=== PATIENT | male | born 1950 | race Caucasian/White ===

== ENCOUNTER 2017-03-30 07:49 | Day surgery (SDC) | payer MEDICARE, BC, SELFPAY ==
[2017-03-30] VITALS (7 sets, daily range): BP systolic 131–156; BP diastolic 71–81; PULSE 70–74; RESP 18–20; TEMP 36.4; O2SAT 20–98; BMI 32.1
--- NOTE | 2017-03-30 08:02 | CA_ITS ---
CA echo doppler complete PROCEDURE: 2-D M-mode and color Doppler study INDICATIONS FOR THE TEST: Chest pain COPD Heart Murmur Tobacco Smoking Palpitations Fatigue Syncope Edema HypertensionXDiabetes Mellitus Rheumatic Fever SOB NAVA Obesity HyperlipidemiaX Family History HD Additional History BRADYCARDIA, 3RD DEGREE BLOCK,PACER INSERTION TODAY PATIENT INFORMATION HEIGHT: 72 WEIGHT:240 GENDER: Male B/P:128/70 2-D/M-MODE INTERPRETATION: 2-D MEASUREMENTS OBSERVED VALUES IN CMS Right Ventricular Dimension (RVDd) 3.0 Interventricular Septum (Thickness)(IVsd) 1.1 Left Ventricular Internal Dimensions(LVIDd) 4.8 Left Ventricular Posterior Wall (Thickness)(LVPWd) .9 Aortic Root 3.5 Aortic Cusp Separation 1.8 Left Atrial Dimensions (LAD) 4.0 2D 1. Left atrium is mildly enlarged, left ventricle is normal size, there is mild concentric left ventricular hypertrophy, visually estimated ejection fraction 50% with no obvious regional wall motion abnormality. 2. The right atrium and right ventricle are mildly enlarged with normal contractility. 3. The aortic valve is minimally thickened and fibrosed. 4. The mitral and tricuspid valvular minimally thickened. 5. The pulmonic valve is poorly visualized. 6. Trivial pericardial effusion noted. DOPPLER INTERROGATION: Doppler interrogation of the aortic, mitral and tricuspid valvular presence of mild mitral and tricuspid regurgitation, tricuspid regurgitant jet velocity is insufficient for calculation of the right ventricular systolic pressure, diastolic parameters are inconclusive. CONCLUSION: 1. Mild biatrial enlargement, normal left ventricular size, mild concentric left ventricular hypertrophy, visually estimated ejection fraction 50% with no obvious regional wall motion abnormality, diastolic parameters are inconclusive. 2. Mildly enlarged right ventricle with normal contractility. 3. Mild mitral and tricuspid regurgitation. 4. Trivial pericardial effusion noted.
--- NOTE | 2017-03-30 09:19 | HMH.ANESCL ---
[facility] Anesthesia Checklist - Structural Data Planned Operative Procedure/s: Permanent Pacemaker Placement Consent for Planned Operative Procedure(s) Verified: Yes Verified Documents: Surgical Consent - Additional verifications Anesthesia Reactions: No - Airway Assessment C-Spine Mobility Assessed: Yes TMJ Mobility Assessed: Yes Dentition: Dentures-good fit - Anesthesia Plan Anesthesia Risk discussed: Yes Anesthesia Plan: Verified ASA Class: III Anesthesia Type: MAC [facility] Anesthesia HX I have reviewed the patient's past medical history: Yes Medical History: Reports:: Gastroesophageal Reflux Disease, Hyperlipidemia, Hypertension, Kidney Stones Denies:: Diabetes Mellitus Type 1, Diabetes Mellitus Type 2, Seizures Other Medical History: Denies: Blood Transfusion Reaction Comment: 3rd degree AV block Other Surgeries: Yes: Colonoscopy, Hernia Repair, Other (stomach surgery). No: Pacemaker Amputation: No Fractures: No *Family Hx:: No significant family history
--- NOTE | 2017-03-30 11:59 | XR_ITS ---
XR chest portable Ordering Physician: Dominik Neville MD Patient Age: 66 years: Male HISTORY: ITS.REASON: pacemeker placement verification TECHNIQUE: AP portable upright chest pacemaker placement COMPARISON : March 27, 2009 2 view chest FINDINGS Pacemaker overlies the upper left chest with atrial and ventricular leads appearing intact. Heart appears upper normal size. The lungs are clear. No pneumothorax. No pleural effusion. No acute findings. Markings upper normal towards the right lung base similar to previous study. The Previous generous hiatal hernia shadow is less evident on today's study. IMPRESSION: ------ . Pacemaker now in place overlying the left chest No pneumothorax. Lungs clear no active disease. Upper normal size.
--- NOTE | 2017-05-27 11:16 | HMH.PACER ---
[facility] Pacemaker - Pacemaker Placement Date of Procedure:: 03/30/17 Time of Procedure:: 09:00 Procedure Performed:: Pocket formation for permanent pacemaker placement Placement of atrial sensing lead into the right atrial appendage Placement of ventricular sensing pacing lead into the right ventricular apex Placement of permanent pacemaker Preoperative Diagnosis:: Symptomatic bradycardia Intermittent atrioventricular block Complications:: None Estimated Blood Loss: 10 Technique:: 1% Lidocaine with epinephrine used to anesthetize the left anterior aspect of the chest.Scalpel was used to make the initial cutaneous incision while electrocautery was used to dissect down into the fascia. The fascia was lifted off the pectoralis muscle and digitally manipulated creating a pocket for the pacemaker. The patient was then placed in Trendelenburg position and the subclavian vein was accessed via the Selinger technique. A 7 Cymraes sheath was placed under fluoroscopic guidance into the subclavian vein. Following this, an additional wire was placed into the sheath. Now, with two wires inside the 7 Cymraes sheath, this sheath was removed, maintaining the two wires in the subclavian vein. The sheath and dilator was then placed over one of the wires while keeping the other wire in place within the subclavian vein. The dilator was removed from the sheath. Using fluoroscopic guidance, the ventricular lead was placed into the right ventricular apex, screwed and secured into place. Electronic interrogation proved acceptable thresholds and voltage within the lead. Using 3-0 silk, the ventricular lead was then secured into place. Lead was secured to the fascia using the 3-0 silk. Following this, the sheath was pealed away. An additional 7 Cymraes fresh sheath and dilator was placed over the existing wire. Using fluoroscopic guidance, the atrial lead was then placed into the right atrial appendage and screwed and secured in place. Electrical interrogation demonstrated acceptable thresholds and voltage numbers. The atrial lead was then secured into place using 3-0 silk and then the lead was finally secured to the fascia. With both the atria and ventricular leads in place with acceptable thresholds and sensitivity, the atrial and ventricular leads were placed into the pacemaker generator. Pacemaker generator was then secured to the fascia using 3-0 silk. 1 gram of Ancef was used to flush the pocket. Following the pacemaker being secured to the fascia and in place, Monocryl was used to close the subcutaneous layers while tova were used to close the cutaneous layer. A pressure dressing was placed and the patient was transferred to the postop holding area in stable condition for postoperative care. - Interrogation Narrative: P-wave measures 4.5 mV with a threshold of 1 V and lead impedance 557 ohms and pulse width 0.4 R wave measures greater than 12 mV with an impedance of 835 ohms and a threshold of 0.2 V pulse width 0.4 ms DDDR mode with base tracking of 70 maximum track of 120 Generator model number [id number] serial #[id number] Atrial lead model number [id number] mm52 serial number [id number] Ventricular lead model number LPA 1200 mm58 serial number [id number] Impression:: Successful pocket formation for permanent pacemaker placement Successful placement of atrial and sensing pacing lead into the right atrial appendage Successful placement of ventricular and sensing pacer lead into the right ventricular apex Successful per pacemaker placement Plan: Postoperative wound care
--- NOTE | 2017-05-27 11:19 | P.PCN_ITS ---
[facility] Pacemaker - Pacemaker Placement Date of Procedure:: 03/30/17 Time of Procedure:: 09:00 Procedure Performed:: Pocket formation for permanent pacemaker placement Placement of atrial sensing lead into the right atrial appendage Placement of ventricular sensing pacing lead into the right ventricular apex Placement of permanent pacemaker Preoperative Diagnosis:: Symptomatic bradycardia Intermittent atrioventricular block Complications:: None Estimated Blood Loss: 10 Technique:: 1% Lidocaine with epinephrine used to anesthetize the left anterior aspect of the chest.Scalpel was used to make the initial cutaneous incision while electrocautery was used to dissect down into the fascia. The fascia was lifted off the pectoralis muscle and digitally manipulated creating a pocket for the pacemaker. The patient was then placed in Trendelenburg position and the subclavian vein was accessed via the Selinger technique. A 7 Montserratian sheath was placed under fluoroscopic guidance into the subclavian vein. Following this, an additional wire was placed into the sheath. Now, with two wires inside the 7 Montserratian sheath, this sheath was removed, maintaining the two wires in the subclavian vein. The sheath and dilator was then placed over one of the wires while keeping the other wire in place within the subclavian vein. The dilator was removed from the sheath. Using fluoroscopic guidance, the ventricular lead was placed into the right ventricular apex, screwed and secured into place. Electronic interrogation proved acceptable thresholds and voltage within the lead. Using 3-0 silk, the ventricular lead was then secured into place. Lead was secured to the fascia using the 3-0 silk. Following this, the sheath was pealed away. An additional 7 Montserratian fresh sheath and dilator was placed over the existing wire. Using fluoroscopic guidance, the atrial lead was then placed into the right atrial appendage and screwed and secured in place. Electrical interrogation demonstrated acceptable thresholds and voltage numbers. The atrial lead was then secured into place using 3-0 silk and then the lead was finally secured to the fascia. With both the atria and ventricular leads in place with acceptable thresholds and sensitivity, the atrial and ventricular leads were placed into the pacemaker generator. Pacemaker generator was then secured to the fascia using 3-0 silk. 1 gram of Ancef was used to flush the pocket. Following the pacemaker being secured to the fascia and in place, Monocryl was used to close the subcutaneous layers while tova were used to close the cutaneous layer. A pressure dressing was placed and the patient was transferred to the postop holding area in stable condition for postoperative care. - Interrogation Narrative: P-wave measures 4.5 mV with a threshold of 1 V and lead impedance 557 ohms and pulse width 0.4 R wave measures greater than 12 mV with an impedance of 835 ohms and a threshold of 0.2 V pulse width 0.4 ms DDDR mode with base tracking of 70 maximum track of 120 Generator model number [id number] serial #[id number] Atrial lead model number LPA 1200 mm52 serial number [id number] Ventricular lead model number LPA 1200 mm58 serial number [id number] Impression:: Successful pocket formation for permanent pacemaker placement Successful placement of atrial and sensing pacing lead into the right atrial appendage Successful placement of ventricular and sensing pacer lead into the right ventricular apex Successful per pacemaker placement Plan: Postoperative wound care
== END 2017-03-30 12:45 | disposition home or self-care (01) ==
PROVIDERS: Family Provider Family Medicine; PCP Family Medicine; Visit Provider Internal Medicine
DX: I44.2 Atrioventricular block, complete (principal); R00.1 Bradycardia, unspecified; I10 Essential (primary) hypertension
CPT/HCPCS: 33208; 71045; 93306; 96374; C1785; C1898

== ENCOUNTER → 2017-04-23 08:43 | Outpatient (CLI) | payer MEDICARE, SELFPAY ==
--- NOTE | 2017-04-23 08:47 | FL_ITS ---
FL upper GI w air HISTORY: ITS.REASON: ABD PAIN ORDERING PHYSICIAN: Jan Zhang MD PATIENT AGE: 66 years COMPARISON: 09/15/2014 FINDINGS: The esophagus has an unremarkable appearance. Previously there was a large hiatal hernia on 09/15/2014. No hernia is evident at this time. There is narrowing of the distal esophagus suggesting that the patient has had a Rehana fundoplication. Please correlate with surgical history. No annular constricting lesions are evident. Contrast does flow into the stomach. No ulcer or mass evident. Duodenal bulb and proximal duodenum is unremarkable. The patient was scheduled for a small bowel follow-through however, patient refused to drink additional quantity of barium and also refused additional images for the small bowel follow-through which was therefore canceled. FLUOROSCOPY TIME : 2 minutes and 33 seconds. IMPRESSION: 1. No evidence of hiatal hernia. There is narrowing of the distal esophagus with filling defect in the cardia of the stomach consistent with Rehana fundoplication surgery. 2. Otherwise negative upper GI
== END ==
PROVIDERS: Family Provider Family Medicine; PCP Family Medicine; Visit Provider Family Medicine
DX: R10.9 Unspecified abdominal pain (principal)
CPT/HCPCS: 74247

== ENCOUNTER → 2017-05-08 10:49 | Outpatient (CLI) | payer MEDICARE, BC, SELFPAY ==
--- NOTE | 2017-05-08 10:58 | CT_ITS ---
CT head/brain wo con HISTORY: Bilateral facial and arm numbness ORDERING PHYSICIAN: Johnson Alvarez MD PATIENT AGE: 66 years COMPARISON: None TECHNIQUE: Axial images obtained without contrast. Brain and bone windows reviewed. FINDINGS: No midline shift, mass effect, intracranial hemorrhage, hydrocephalus, or extra-axial fluid collection is evident. The calvarium has an unremarkable appearance. No mastoid effusion. No sinus air-fluid levels.. IMPRESSION: Negative CT head without contrast. No acute finding. There is no evidence of intracranial hemorrhage, focal mass, or acute territorial infarction. A negative CT does not exclude an acute CVA. A follow-up head CT or MRI is recommended if neurological symptoms persist
[2017-05-08 12:03] LABS: Anion Gap 11.3 mEq/L (5-15); Blood Urea Nitrogen 18 mg/dL (7-18); Carbon Dioxide 29 mmol/L (21.0-32.0); Chloride 104 mmol/L (98-107); Creatinine,Serum 1.01 mg/dL (0.70-1.30); Estimated Glomerular Filt Rate 74 ml/min (>60); GFR (African American) 90 ML/MIN (>60); Glucose 101 mg/dL (74-106); Sodium 140 mmol/L (136-145)
[2017-05-08 12:17] LABS: Potassium 4.3 mmoL/L (3.5-5.1)
== END ==
PROVIDERS: Family Provider Family Medicine; PCP Family Medicine; Visit Provider Internal Medicine Cardiovascular Disease
DX: I10 Essential (primary) hypertension (principal); E78.5 Hyperlipidemia, unspecified; R20.2 Paresthesia of skin; I20.9 Angina pectoris, unspecified; Z95.0 Presence of cardiac pacemaker
CPT/HCPCS: 36415; 70450; 80048

== ENCOUNTER → 2017-05-11 11:20 | Outpatient (CLI) | payer MEDICARE, SELFPAY ==
--- NOTE | 2017-05-11 11:22 | CI_ITS ---
Cerebrovascular Exam Indications: 780.4 Dizziness and giddiness. 782.0 Disturbance of skin sensation. IMPRESSIONS 1. The bilateral internal carotid arteries reveal no evidence of plaque or stenosis. 2. The bilateral common and external carotid arteries reveal no significant stenosis. 3. The bilateral vertebral arteries are patent with normal antegrade flow. Carotid duplex study. Complete study and Doppler flow study including spectral analysis, color and hopkins scale imaging. Height: Height: 182.9cm. Height: 72in. Weight: Weight: 107kg. Weight: 235.5lb. Body mass index: BMI: 32kg/m^2. Body surface area: BSA: 2.36m^2. Location: Vascular laboratory. Patient status: Outpatient. Tables: Arterial flow: + +--------+--------+ Location V sys V ed + +--------+--------+ Right CCA - proximal 64.4cm/s 14.9cm/s + +--------+--------+ Right CCA - distal 70.7cm/s 14.9cm/s + +--------+--------+ Right ECA 79.4cm/s -------- + +--------+--------+ Right ICA - proximal 66.8cm/s 15.7cm/s + +--------+--------+ Right ICA - mid 55.8cm/s 16.5cm/s + +--------+--------+ Right ICA - distal 49.5cm/s 18.1cm/s + +--------+--------+ Right vertebral 47.1cm/s -------- + +--------+--------+ Left CCA - proximal 85.6cm/s 18.9cm/s + +--------+--------+ Left CCA - distal 84.1cm/s 19.6cm/s + +--------+--------+ Left ECA 52.6cm/s -------- + +--------+--------+ Left ICA - proximal 51.1cm/s 16.5cm/s + +--------+--------+ Left ICA - mid 62.9cm/s 21.2cm/s + +--------+--------+ Left ICA - distal 55cm/s 14.1cm/s + +--------+--------+ Left vertebral 44.8cm/s -------- + +--------+--------+ Velocity ratios: + + + + + + Right, V sys Right, V ed Left, V sys Left, V ed + + + + + + Max ICA/dist CCA 0.94 1.21 0.75 1.08 + + + + + + (Report amended ) Electronically signed by: Lei Olivares [id number]
--- NOTE | 2017-05-11 11:22 | NM_ITS ---
NM stephani perf SPECT rest str CLINICAL INDICATION: Chest pain, fatigue ORDERING PHYSICIAN: Johnson Alvarez MD PATIENT AGE: 66 years COMPARISON: None DOSE: 10.52 mCi Tc Myoview intravenously at rest followed by 31.3 mCi technetium Myoview following the intravenous ministration of 0.4 mg of Lexiscan. Resting blood pressure is 155/81. Stress blood pressure 164/76. FINDINGS: Ejection fraction is calculated to be 62%. No obvious wall motion abnormality. SPECT and polar map images reviewed. No reversible defects are apparent. There slight decrease activity within the inferior wall and septum and may be technical in nature becoming more. On the delayed images. IMPRESSION: 1. Normal ejection fraction. 2. No convincing evidence of ischemia or infarction
--- NOTE | 2017-05-11 12:51 | HMH.ITSHM ---
ATORVASTATIN B-12 CALCIUM CENTRUM SILVER LEVOTHYROXINE ELIQUIS
== END ==
PROVIDERS: Family Provider Family Medicine; PCP Family Medicine; Visit Provider Internal Medicine Cardiovascular Disease
DX: R20.1 Hypoesthesia of skin (principal); E87.6 Hypokalemia; F41.9 Anxiety disorder, unspecified; R42 Dizziness and giddiness; R20.0 Anesthesia of skin; I44.2 Atrioventricular block, complete; I10 Essential (primary) hypertension; I44.1 Atrioventricular block, second degree; E78.5 Hyperlipidemia, unspecified; R00.1 Bradycardia, unspecified; I20.8 Other forms of angina pectoris
CPT/HCPCS: 78452; 93017; 93880; A9502; J2785

== ENCOUNTER → 2018-12-17 11:52 | Outpatient (CLI) | payer MEDICARE, SELFPAY ==
[2018-12-17 13:15] LABS: Anion Gap 13.8 mEq/L (5-15); Blood Urea Nitrogen 30 mg/dL (7-18); Calcium 9.2 mg/dL (8.5-10.1); Carbon Dioxide 27 mmol/L (21.0-32.0); Chloride 103 mmol/L (98-107); Creatinine,Serum 1.65 mg/dL (0.70-1.30); Estimated Glomerular Filt Rate 42 ml/min (>60); GFR (African American) 51 ML/MIN (>60); Glucose 103 mg/dL (74-106); Potassium 3.8 mmoL/L (3.5-5.1); Sodium 140 mmol/L (136-145)
== END ==
PROVIDERS: Visit Provider Internal Medicine Cardiovascular Disease
DX: I10 Essential (primary) hypertension (principal); I48.91 Unspecified atrial fibrillation; R00.2 Palpitations; Z95.0 Presence of cardiac pacemaker
CPT/HCPCS: 36415; 80048

== ENCOUNTER → 2018-12-21 12:43 | Outpatient (CLI) | payer MEDICARE, SELFPAY ==
--- NOTE | 2018-12-21 12:45 | CA_ITS ---
APPROVED REPORT EXAM: Comprehensive 2D, Doppler, and color-flow Echocardiogram Service Department Manager: Patricia Ramos RDCS Ht: 6 ft 0 in Wt: 260lbs BSA: 2.38 BP: 168/81 mmHg Indications: Shortness of Breath, Atrial Fibrillation, Palpitations, Hyperlipidemia, Hypertension/HDD, PACEMAKER 2D Dimensions LVOT 1.80 cm (M/F) 1.5-2.5 M-Mode Dimensions RVDd 2.80 cm (0.9-2.6) LA Diam 5.10 cm (1.9-4.0) LVDd 5.10 cm (3.5-5.7) Ao Diam 3.40 cm (2.0-3.7) LVDs 3.90 cm (3.5-5.7) AV Cusp 2.00 cm (1.5-2.6) IVSd 0.90 cm (0.6-1.1) PWd 1.00 cm (0.6-1.1) EF (Teich) 46.90% FS 23.50% EDV (Teich) 124.00 mL ESV (Teich) 65.90 mL LV Diastology E/A Ratio 0.6 MED E' 5.46 (< 7 cm/sec) E'/MED E' Ratio 7.80 (>14) LAT E' 7.80 (<10 cm/sec) E/LAT E' Ratio 5.40 (>14) Mitral Valve MV E Max Norm. 42.40 (40-130 cm/s) MV A Velocity 74.00 (40-130 cm/s) E/A Ratio 0.60 Tricuspid Valve TR P. Velocity 269.00 cm/s RAP Estimate 10.00 mmHg RVSP 39.00 mmHg Left Ventricle Left atrium is mildly enlarged, left ventricle is normal size, mild concentric left ventricular hypertrophy, visually estimated ejection fraction 55%, there is no regional wall motion abnormality, there is abnormal septal motion. Grade 1 diastolic dysfunction seen without tissue Doppler evidence of raise left atrial pressure. Right Ventricle Right atrium and right ventricular mildly enlarged with normal contractility, there is a pacemaker lead seen in the right atrium and right ventricle. Aortic Valve Aortic valve is minimally thickened and fibrosed, there is no aortic stenosis aortic insufficiency. Mitral Valve Mitral valve is grossly normal, there is no mitral stenosis, there is mild mitral regurgitation. Tricuspid Valve Tricuspid valve is grossly normal, there is mild tricuspid regurgitation, calculated right ventricular systolic pressure is 42 mmHg consistent with moderately elevated right ventricular systolic pressure. Pulmonic Valve Pulmonic valve is poorly visualized. Great Vessels Aortic root is normal size. Pericardium No significant pericardial effusion noted. Conclusion 1. Biatrial enlargement, normal left ventricular size, mild concentric left ventricular hypertrophy, visually estimated ejection fraction 55%, there is abnormal septal motion. Grade 1 diastolic dysfunction seen without tissue Doppler evidence of raise left atrial pressure. 2. Mildly in the right ventricle with normal contractility, there is a pacemaker lead seen in the right ventricle. 3. Mild mitral and tricuspid regurgitation, calculated right ventricular systolic pressure is 42 mmHg consistent with moderately elevated right ventricular systolic pressure. 4. No significant pericardial effusion noted. Electronically signed by : Johnson Alvarez, 12/24/2018 11:52:07
== END ==
PROVIDERS: PCP Family Medicine; Visit Provider Internal Medicine Cardiovascular Disease
DX: R00.2 Palpitations (principal)
CPT/HCPCS: 93306

== ENCOUNTER → 2019-01-11 14:58 | Outpatient (CLI) | payer MEDICARE, SELFPAY | PROVIDERS: PCP Family Medicine; Visit Provider Internal Medicine Cardiovascular Disease | DX: R53.83 Other fatigue (principal); R40.0 Somnolence; G47.33 Obstructive sleep apnea (adult) (pediatric) | CPT/HCPCS: G0399 ==

== ENCOUNTER 2019-07-20 10:23 | Emergency (ER) | payer MEDICARE, SELFPAY ==
[2019-07-20 10:33] VITALS: BP 130/76; PULSE 70; RESP 16; TEMP 36.4; O2SAT 98; BMI 33.0
--- NOTE | 2019-07-20 11:35 | HMH.EDGENADL ---
ED Disposition Clinical Impression: Arthritis Disposition: Home, Self-Care Condition on Discharge: Good Instructions: DI for Acute Pain -- Adult Referrals: Jan Zhang MD [Primary Care Provider] - - Critical Care Critical Care Time: No Attestation: On 07/20/19, the high probability of a clinically significant, sudden or life threatening deterioration of the following system(s) required my full and direct attention, intervention and personal management. The time I documented below is in addition to time spent performing reported procedures but includes the following listed in this critical care notation. Medical Decision Making - Medical Records Medical records reviewed: Yes: I reviewed the patient's medical records. - Hu Inquiry Pt receiving controlled substance: No Vital Signs: 07/20/19 10:33 Temperature 97.5 F L Temperature Source Oral Pulse Rate [Left Radial] 70 Respiratory Rate 16 Blood Pressure [Left Arm] 130/76 Blood Pressure Mean [Left Arm] 94 Blood Pressure Source [Left Arm] Automatic Cuff Blood Pressure Position [Left Arm] Sitting 02 Sat by Pulse Oximetry 98 Oxygen Delivery Method Room Air - Lab Data Lab results reviewed: Yes: I reviewed the patient's lab results. Orders (Tests/Meds): ED MEDICATIONS Discontinued Medications Generic Name Dose Route Start Last Admin Trade Name Freq PRN Reason Stop Dose Admin Triamcinolone Acetonide 20 mg 07/20/19 10:42 07/20/19 11:26 Kenalog 10mg/Ml 5ml Vial IJ 07/20/19 10:43 5 cc ONCE ONE Administration General Adult HPI - General Chief complaint: PAIN Stated complaint: both knee pain, no accident Time Seen by Provider: 07/20/19 11:36 Mode of Arrival: Ambulatory Limitations: No Limitations Description of Symptoms (Recalled from ER Triage Doc. by RN): PT C/O BILATERAL KNEE PAIN, NO KNOWN INJURY. PT STATES THE PAIN IS WORSE IN THE RT KNEE. PT STATES THAT HE HAD A SIMILAR PAIN BEFORE AND WAS GIVEN A MEDROL DOSE PACK AND IT CLEARED HIM RIGHT UP . - History of Present Illness HPI narrative: 68-year-old male presents to the ED with right knee pain and swelling. Patient did have any traumatic injury but he is got chronic arthritis in the knee and he says it flares up on him a couple times a year. He states that sometimes he gets an intramuscular injection of steroids and it usually takes care of it for a couple of weeks. Patient denies any overt pain but says it is uncomfortable and feels swollen and full. Patient has been applying ice. Patient did not denies any alleviating factors except for ice and nonsteroidals but does state exacerbating factors includes ambulation and movement more so up and down steps. - Related Data Home Medications Medication Instructions Recorded Confirmed atorvastatin 20 mg tablet 20 mg PO QDAY 03/27/17 04/28/19 hydrochlorothiazide 25 mg tablet 25 mg PO QDAY 03/27/17 04/28/19 aspirin 81 mg tablet,delayed 81 mg PO DAILY tab 05/28/17 04/28/19 release Amlodipine Besylate/Benazepril 1 cap PO DAILY 05/01/18 04/28/19 [Amlodipine-Benazepril 5-40 mg] Previous Rx's Medication Instructions Recorded apixaban 5 mg tablet 5 mg PO BID #60 tab 01/27/19 bisoprolol fumarate 10 mg tablet 10 mg PO DAILY #30 tab 04/06/19 Allergies Allergy/AdvReac Type Severity Reaction Status Date / Time morphine AdvReac Nausea Verified 04/28/19 13:14 [facility] History - Hepatitis A Screen Drug use history?: No High risk sexual behaviors?: No History of sexually transmitted infection?: No Currently employed?: No Childcare worker?: No Do you have indoor plumbing?: Yes Do you have electricity?: Yes Attestation statement:: This patient has been screened for Hepatitis A risk factors. I have reviewed the patient's past medical history: Yes Medical History: Reports:: Gastroesophageal Reflux Disease(GERD), Hyperlipidemia, Hypertension, Internal Pacemaker, Kidney Stones, Supraventricular Tachycardia
[2019-07-20 11:45] VITALS: BP 0/0; PULSE 87; RESP 18; TEMP 36.8; O2SAT 98
== END 2019-07-20 11:45 | disposition home or self-care (01) ==
PROVIDERS: Emergency Provider Family Medicine; PCP Family Medicine
DX: M17.11 Unilateral primary osteoarthritis, right knee (principal); K21.9 Gastro-esophageal reflux disease without esophagitis; E78.5 Hyperlipidemia, unspecified; I10 Essential (primary) hypertension; Z95.0 Presence of cardiac pacemaker; Z87.442 Personal history of urinary calculi; I47.1 Supraventricular tachycardia
CPT/HCPCS: 20610; 96372; 99281; J3301

== ENCOUNTER 2021-02-26 17:07 | Emergency (ER) | payer MEDICARE, SELFPAY ==
[2021-02-26 17:41] VITALS: BP 115/75; PULSE 70; RESP 19; TEMP 36.8; O2SAT 98; BMI 33.9
--- NOTE | 2021-02-26 17:44 | HMH.EDUTC ---
[facility] [place]: Impacted ear wax Qualifiers: Laterality: left Qualified Code(s): H61.22 - Impacted cerumen, left ear Disposition: Home, Self-Care Condition on Discharge: Good Instructions: DI for Cerumen Impaction, Middle Ear Infection Additional Instructions: Over the counter Debrox may help keep wax cleared from ear FOllow up with your Family Doctor if symptoms return or worse Return if needed Straight to ER if any life threatening symptoms Referrals: Jan Zhang MD [Primary Care Provider] - As needed Time of Disposition: 18:10 Medical Decision Making - Hu Inquiry Pt receiving controlled substance: No Hu was queried for this patient: No Vital Signs: 02/26/21 17:41 Temperature 98.3 F Temperature Source Oral Pulse Rate [Left] 70 Respiratory Rate 19 Blood Pressure [Right Arm] 115/75 Blood Pressure Mean [Right Arm] 88 02 Sat by Pulse Oximetry 98 [facility] [place] - General Stated complaint: left er pain Time Seen by Provider: 02/26/21 17:44 Mode of Arrival: Ambulatory Source of Information: Patient Limitations: No Limitations Description of Symptoms (Recalled from Triage Doc. by RN): pt c/o a L ear ache. x4 days HEENT Symptoms (Recalled from RN notes): Yes (L ear infection) Resp Symptoms (Recalled from RN notes): No Skin Symptoms (Recalled from RN notes): No MS Symptoms (Recalled from RN notes): No Functional Status (Recalled from RN notes): wnl - History of Present Illness Provider Complaint: Patient states that he has been having pain in his left ear and feels like it is stopped up and he isnt able to hear out of it States that feels like it does when he gets a ear infection so he came - Related Data Home Medications Medication Instructions Recorded Confirmed atorvastatin 20 mg tablet 20 mg PO QDAY 03/27/17 11/16/20 hydrochlorothiazide 25 mg tablet 25 mg PO QDAY 03/27/17 11/16/20 aspirin 81 mg tablet,delayed 81 mg PO DAILY tab 05/28/17 11/16/20 release Amlodipine Besylate/Benazepril 1 cap PO DAILY 05/01/18 11/16/20 [Amlodipine-Benazepril 5-40 mg] Previous Rx's Medication Instructions Recorded bisoprolol fumarate 10 mg tablet 10 mg PO DAILY #90 tab 05/18/20 apixaban 5 mg tablet See Rx Instructions .ROUTE 01/09/21 .COMPLEX #60 tab Allergies Allergy/AdvReac Type Severity Reaction Status Date / Time morphine AdvReac Nausea Verified 11/16/20 10:28 - Worker's Comp Is this a Worker's Comp case?: No [facility] History - Hepatitis A Screen Drug use history?: No High risk sexual behaviors?: No History of sexually transmitted infection?: No Currently employed?: No Childcare worker?: No Do you have indoor plumbing?: Yes Do you have electricity?: Yes Attestation statement:: This patient has been screened for Hepatitis A risk factors. I have reviewed the patient's past medical history: Yes Medical History: Reports:: Atrial Fibrillation, Gastroesophageal Reflux Disease(GERD), Hyperlipidemia, Hypertension, Internal Pacemaker, Kidney Stones, Palpitations, Supraventricular Tachycardia Denies:: Cancer, Diabetes Mellitus Type 1, Diabetes Mellitus Type 2, MRSA, Seizures Other Medical History: Reports: Blood Transfusion Reaction Comment: 3rd degree AV block Other Surgeries: Yes: Colonoscopy, EGD, Hernia Repair, Pacemaker, Other Amputation: No Fractures: No - Social History Smoking Status: Never smoker Alcohol Intake: never Alcohol Intake Frequency:: other Substance Use Type: denies use Occupational Status: other Housing: house Household Members: spouse Family Hx:: Asthma ROS Obtained: Yes All systems reviewed & no additional complaints, Yes Systems reviewed as appropriate & no additional complaints - Constitutional Constitutional: Reports system reviewed and no additional complaints, except as docu, Denies body ache, Denies chills, Denies fever(s) - ENT Ears, Nose, Mouth, and Throat: Reports system reviewed and no additional complaints, except as do
[2021-02-26 18:03] VITALS: BP 115/75; PULSE 70; RESP 19; TEMP 36.8
== END 2021-02-26 18:26 | disposition home or self-care (01) ==
PROVIDERS: Emergency Provider Nurse Practitioner; PCP Family Medicine
DX: H92.02 Otalgia, left ear (principal); H61.22 Impacted cerumen, left ear; K21.9 Gastro-esophageal reflux disease without esophagitis; E78.5 Hyperlipidemia, unspecified; I10 Essential (primary) hypertension; I48.0 Paroxysmal atrial fibrillation; I47.2 Ventricular tachycardia; Z95.0 Presence of cardiac pacemaker; Z79.899 Other long term (current) drug therapy; Z88.5 Allergy status to narcotic agent
CPT/HCPCS: 69209; G0463; 99202

== ENCOUNTER 2021-03-04 10:32 | Emergency (ER) | payer MEDICARE, SELFPAY ==
[2021-03-04 11:00] VITALS: BP 149/84; PULSE 70; RESP 18; TEMP 36.5; O2SAT 97; BMI 35.2
--- NOTE | 2021-03-04 11:43 | HMH.EDUTC ---
[facility] [place] Clinical Impression: Olecranon bursitis, left elbow Disposition: Home, Self-Care Condition on Discharge: Good Instructions: DI for Elbow Bursitis Additional Instructions: Rest the extremity, Wear the yoly wrap for compression, Elevate the extremity as tolerated while you are resting. Take the steroids as directed, unless your primary care doctor instructs you different. Follow up with Dr. Mcbride (orthopedics) if you continue to have issues with this. I put in a referral but you need to call his office and schedule an appointment. Follow up with your regular doctor as discussewd. GO TO THE ER FOR ANY WORSENING SYMPTOMS Prescriptions: methylPREDNISolone [Medrol] 4 mg PO DIRECTED 6 Days #21 packet Transmission Status: Received by [facility] Referrals: Jan Zhang MD [Primary Care Provider] - Time of Disposition: 11:45 Medical Decision Making - Medical Records Medical records reviewed: No: I reviewed the patient's medical records. - Hu Inquiry Pt receiving controlled substance: No Vital Signs: 03/04/21 11:00 03/04/21 11:51 Temperature 97.7 F 97.7 F Temperature Source Oral Pulse Rate 70 Pulse Rate [Left] 70 Respiratory Rate 18 18 Blood Pressure 149/84 H Blood Pressure [Right Arm] 149/84 H Blood Pressure Mean [Right Arm] 105 02 Sat by Pulse Oximetry 97 Medical Decision Narrative: He refuses an elbow x-ray. He refused to have his elbow wrapped with a yoly bandage. He was adamant that he wanted the fluid drawn off and when I told him that it was not the time to do that and that we should do conservative interventions first he said he was leaving and going to go see his pcp in the morning and that they would draw the fluid off like he wants. [facility] [place] HPI - General Stated complaint: fluid on left elbow Time Seen by Provider: 03/04/21 11:15 Mode of Arrival: Ambulatory Source of Information: Patient Limitations: No Limitations Description of Symptoms (Recalled from Triage Doc. by RN): pt c/o L elbow edmea with a nodule the size of a golf ball on the tip of his elbow. ongoing x2 weeks HEENT Symptoms (Recalled from RN notes): No Resp Symptoms (Recalled from RN notes): No Skin Symptoms (Recalled from RN notes): No MS Symptoms (Recalled from RN notes): Yes Functional Status (Recalled from RN notes): wnl - History of Present Illness Provider Complaint: He states that he has had swelling at the tip of his elbow for the past 2 weeks. He describes it as feeling a soft golf ball is under the skin on my elbow . He denies any injury. He states that the swelling just kind of came up out of no where. He denies significant pain or soreness at the site other than he states that it does kind of hurt to move it at times. He denies any fever or chills. There is some very mild warmth at the site. No open wound and no drainage. No puncture wound noted. He does have a history of gout, but he has never had gout symptoms in his elbows and this does not feel like his normal gout symptoms anyway. - Related Data Home Medications Medication Instructions Recorded Confirmed atorvastatin 20 mg tablet 20 mg PO QDAY 03/27/17 11/16/20 hydrochlorothiazide 25 mg tablet 25 mg PO QDAY 03/27/17 11/16/20 aspirin 81 mg tablet,delayed 81 mg PO DAILY tab 05/28/17 11/16/20 release Amlodipine Besylate/Benazepril 1 cap PO DAILY 05/01/18 11/16/20 [Amlodipine-Benazepril 5-40 mg] Previous Rx's Medication Instructions Recorded bisoprolol fumarate 10 mg tablet 10 mg PO DAILY #90 tab 05/18/20 apixaban 5 mg tablet See Rx Instructions .ROUTE 01/09/21 .COMPLEX #60 tab methylPREDNISolone [Medrol] 4 mg PO DIRECTED 6 Days #21 03/04/21 packet Allergies Allergy/AdvReac Type Severity Reaction Status Date / Time morphine AdvReac Nausea Verified 11/16/20 10:28 - Worker's Comp Is this a Worker's Comp case?: No [facility] History - Hepatitis A Screen Drug use history?: No High risk
[2021-03-04 11:51] VITALS: BP 149/84; PULSE 70; RESP 18; TEMP 36.5
== END 2021-03-04 11:53 | disposition home or self-care (01) ==
PROVIDERS: Emergency Provider Nurse Practitioner Family; PCP Family Medicine
DX: M70.22 Olecranon bursitis, left elbow (principal); I48.0 Paroxysmal atrial fibrillation; Z95.0 Presence of cardiac pacemaker; K21.9 Gastro-esophageal reflux disease without esophagitis; E78.5 Hyperlipidemia, unspecified; I10 Essential (primary) hypertension; Z87.442 Personal history of urinary calculi; I47.2 Ventricular tachycardia; Z79.899 Other long term (current) drug therapy
CPT/HCPCS: 99202; G0463

== ENCOUNTER 2021-05-04 03:21 | Emergency (ER) | payer MEDICARE, SELFPAY ==
[2021-05-04 03:22] VITALS: BP 180/98; PULSE 72; RESP 18; TEMP 36.7; O2SAT 98; BMI 35.2
--- NOTE | 2021-05-04 04:07 | HMH.EDDENT ---
ED Disposition Clinical Impression: Fracture of tooth Qualifiers: Encounter type: initial encounter Fracture type: closed Qualified Code(s): S02.5XXA - Fracture of tooth (traumatic), initial encounter for closed fracture Disposition: Home, Self-Care Condition on Discharge: Good Instructions: DI for Dental Pain Additional Instructions: call dentist for follow up Prescriptions: Ketorolac Tromethamine [Toradol 10mg tablet] 10 mg PO Q6HP PRN #10 tab MDD 40mg/day PRN Reason: Moderate To Severe Pain Transmission Status: Pending to [facility] Referrals: Jan Zhang MD [Primary Care Provider] - - Critical Care Critical Care Time: No Attestation: On 05/04/21, the high probability of a clinically significant, sudden or life threatening deterioration of the following system(s) required my full and direct attention, intervention and personal management. The time I documented below is in addition to time spent performing reported procedures but includes the following listed in this critical care notation. Medical Decision Making - Medical Records Medical records reviewed: Yes: I reviewed the patient's medical records. - Hu Inquiry Pt receiving controlled substance: No Vital Signs: 05/04/21 03:22 Temperature 98.1 F Temperature Source Oral Pulse Rate [Left Radial] 72 Respiratory Rate 18 Blood Pressure [Right Arm] 180/98 H Blood Pressure Mean [Right Arm] 125 Blood Pressure Position [Right Arm] Sitting 02 Sat by Pulse Oximetry 98 Oxygen Delivery Method Room Air Orders (Tests/Meds): ED MEDICATIONS Discontinued Medications Generic Name Dose Route Start Last Admin Trade Name Freq PRN Reason Stop Dose Admin Acetaminophen/Codeine Phosphate 1 nadege 05/04/21 03:42 Acetaminophen 300mg W/Codeine 30mg Take Home Pack (6) PO 05/04/21 03:43 ONCE ONE Benzocaine/Butamben/Tetracaine HCl 1 gm 05/04/21 03:40 05/04/21 03:42 Tetracaine/Benzocaine/Butamben 56 Gm [place] TP 05/04/21 03:41 1 gm ONCE ONE Administration Ketorolac Tromethamine 60 mg 05/04/21 03:40 05/04/21 03:53 Ketorolac 60mg/2ml Vial IM 05/04/21 03:41 60 mg ONCE ONE Administration Lidocaine HCl 15 ml 05/04/21 03:40 05/04/21 03:42 Lidocaine 2% Viscous Lashonda 15ml Udc PO 05/04/21 03:41 15 ml ONCE ONE Administration Medical Decision Narrative: has acute dental pain Dental HPI - General Chief complaint: Dental/Oral Stated complaint: broken tooth Time Seen by Provider: 05/04/21 04:07 Mode of Arrival: Ambulatory Source of Information: Patient, Medical Record Limitations: No Limitations Description of Symptoms (Recalled from ER Triage Doc. by RN): PT BROKE TOOTH OFF AT GUM LINE 1 WEEK AGO. PT STATES HE HAS NOT BEEN TO THE DENTIST SINCE IT HAPPENED. PT PRESENTS TO THE ED BECAUSE THE PAIN IS NOW UNBEARABLE. 12/30 DULL/ACHES - History of Present Illness HPI Narrative: acute rt sided dental pain s/p fx tooth MD Complaint: tooth pain Onset (ago): hour(s) Severity: moderate Context: history of dental caries Treatment prior to arrival: none - Related Data Home Medications Medication Instructions Recorded Confirmed atorvastatin 20 mg tablet 20 mg PO QDAY 03/27/17 11/16/20 hydrochlorothiazide 25 mg tablet 25 mg PO QDAY 03/27/17 11/16/20 aspirin 81 mg tablet,delayed 81 mg PO DAILY tab 05/28/17 11/16/20 release Amlodipine Besylate/Benazepril 1 cap PO DAILY 05/01/18 11/16/20 [Amlodipine-Benazepril 5-40 mg] Previous Rx's Medication Instructions Recorded bisoprolol fumarate 10 mg tablet 10 mg PO DAILY #90 tab 05/18/20 apixaban 5 mg tablet See Rx Instructions .ROUTE 01/09/21 .COMPLEX #60 tab methylPREDNISolone [Medrol] 4 mg PO DIRECTED 6 Days #21 03/04/21 packet Ketorolac Tromethamine [Toradol 10 mg PO Q6HP PRN #10 tab MDD 05/04/21 10mg tablet] 40mg/day Allergies Allergy/AdvReac Type Severity Reaction Status Date / Time morphine AdvReac Nausea Verified 0
[2021-05-04 04:30] VITALS: BP 166/99; PULSE 83; RESP 16; TEMP 36.7; O2SAT 95
== END 2021-05-04 04:32 | disposition home or self-care (01) ==
PROVIDERS: Emergency Provider Emergency Medicine; PCP Family Medicine
DX: S02.5XXA Fracture of tooth (traumatic), initial encounter for closed fracture (principal); I10 Essential (primary) hypertension; E78.5 Hyperlipidemia, unspecified; I48.0 Paroxysmal atrial fibrillation; K21.9 Gastro-esophageal reflux disease without esophagitis; Z95.0 Presence of cardiac pacemaker; Z88.5 Allergy status to narcotic agent; Z79.899 Other long term (current) drug therapy
CPT/HCPCS: 96372; 99281

== ENCOUNTER 2022-01-28 16:04 | Emergency (ER) | payer MEDICARE, SELFPAY ==
[2022-01-28 17:36] VITALS: BP 0/0; PULSE 0; RESP 0; TEMP -17.7; TEMP 0
== END 2022-01-28 17:38 | disposition left against medical advice (07) ==
LOC: UTC 16:08
PROVIDERS: Emergency Provider Nurse Practitioner; PCP Nurse Practitioner Family
DX: R05.9 Cough, unspecified (principal); Z79.01 Long term (current) use of anticoagulants; Z79.82 Long term (current) use of aspirin; Z79.899 Other long term (current) drug therapy; Z88.5 Allergy status to narcotic agent; Z53.21 Procedure and treatment not carried out due to patient leaving prior to being seen by health care provider

== ENCOUNTER 2022-09-06 08:26 | Emergency (ER) | payer MEDICARE, SELFPAY ==
[2022-09-06 08:27] VITALS: BP 141/87; PULSE 82; RESP 18; TEMP 36.6; O2SAT 98; BMI 35.5
--- NOTE | 2022-09-06 09:10 | EXP.UTC ---
Discharge Plan Disposition Patient Disposition: Home, Self-Care Condition: Good Prescriptions Prescriptions: New azithromycin [Zithromax] 250 mg tablet 250 mg PO UD DOSE PK Qty: 6 0RF Rx Instructions: Take two (2) tablets today, then one (1) tablet days #2 thru #5 methylprednisolone 4 mg Tablets,Dose Pack 4 mg PO DIRECTED Qty: 21 0RF No Action aspirin [Adult Low Dose Aspirin] 81 mg tablet,delayed release (DR/EC) 81 mg PO .[id number] atorvastatin 20 mg tablet 20 mg PO QDAY hydrochlorothiazide 25 mg tablet 25 mg PO QDAY Eliquis 5 mg tablet 5 mg PO BID Qty: 180 3RF bisoprolol fumarate 10 mg tablet 10 mg PO DAILY Qty: 90 3RF amlodipine-benazepril 1 EACH capsule 1 cap PO DAILY Referrals Follow up/Referrals: Laurita Kamara APRN [Primary Care Provider] - See instructions Activity Restrictions/Add. Instructions Additional Instructions/Restrictions: Drink plenty of fluids. Take tylenol or ibuprofen for pain or fever. Take the medications as directed. Follow up with your regular doctor. GO TO THE ER FOR ANY WORSENING SYMPTOMS Don't start the oral steroids until tomorrow, since you had the shot here today. Clinical Impressions Clinical Impression: Right serous otitis media Instructions Patient Instructions: Middle Ear Infection Discharge ED Provider: Beto Dior [facility] [place] HPI General Stated complaint: feels like something in right ear Mode of Arrival: Ambulatory Source of Information: Patient Limitations: No Limitations Time Seen by Provider: 09/06/22 09:10 Description of Symptoms (Recalled from Triage Doc. by RN): Patient complaint of his right ear being stopped up. HEENT Symptoms (Recalled from RN notes): Yes Resp Symptoms (Recalled from RN notes): No Skin Symptoms (Recalled from RN notes): No MS Symptoms (Recalled from RN notes): No Functional Status (Recalled from RN notes): wnl History of Present Illness Provider Complaint: He states that for the past 2 days he has decreased hearing in his right ear. He also has some ear pain. 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 Related Data Home Medications Medication Instructions Recorded Confirmed atorvastatin 20 mg tablet 20 mg PO QDAY Cholesterol 03/27/17 06/06/22 hydrochlorothiazide 25 mg tablet 25 mg PO QDAY Fluid 03/27/17 06/06/22 amlodipine 5 mg-benazepril 40 mg 1 cap PO DAILY HTN 05/01/18 06/06/22 capsule aspirin 81 mg tablet,delayed 81 mg PO .[id number] [facility] 05/17/21 06/06/22 release (Adult Low Dose Aspirin) Previous Rx's Medication Instructions Recorded apixaban 5 mg tablet (Eliquis) 5 mg PO BID #180 tabs 10/04/21 bisoprolol fumarate 10 mg tablet 10 mg PO DAILY #90 tabs 05/23/22 azithromycin 250 mg tablet 250 mg PO UD DOSE PK #6 tabs 09/06/22 (Zithromax) methylprednisolone 4 mg tablets in 4 mg PO DIRECTED #21 tabs 09/06/22 a dose pack Allergies Allergy/AdvReac Type Severity Reaction Status Date / Time morphine AdvReac Nausea Verified 06/06/22 10:05 Worker's Comp Is this a Worker's Comp case?: No [facility] Disclaimer: The information contained in this section may have been updated after the patient was seen, as this information can be updated by other users. Medical History Atrial fibrillation Cardiac pacemaker in situ GERD (gastroesophageal reflux disease) HLD (hyperlipidemia) HTN (hypertension) Kidney stone Palpitations Supraventricular tachycardia Family History Other Asthma Social History Smoking Status: Never smoker alcohol intake: never substance use type: denies use current occupational status: other Travel in the last 8 weeks: Inside the [place] household members
[2022-09-06 09:12] VITALS: BP 141/87; PULSE 89; RESP 19; TEMP 36.8; O2SAT 99
== END 2022-09-06 09:13 | disposition home or self-care (01) ==
PROVIDERS: Emergency Provider Nurse Practitioner Family; PCP Nurse Practitioner Family
DX: H65.91 Unspecified nonsuppurative otitis media, right ear (principal); I10 Essential (primary) hypertension; E78.5 Hyperlipidemia, unspecified; E03.9 Hypothyroidism, unspecified; Z95.0 Presence of cardiac pacemaker
CPT/HCPCS: 96372; 99212; 99214; G0463

== ENCOUNTER → 2022-12-30 11:13 | Outpatient (CLI) | payer MEDICARE, SELFPAY ==
--- NOTE | 2022-12-30 11:19 | XR_ITS ---
FINAL REPORT CLINICAL HISTORY: EDEMA wood pallet hit leg in august 2022 FINDINGS: Two views of the right tibia-fibula demonstrate no acute fracture or dislocation. There is degenerative change at the knee. The visualized bony structures are well aligned. No soft tissue abnormality is seen. IMPRESSION: No acute process. Reviewed, Interpreted and Dictated by Varghese Ramos III, MD Transcribed by Aguilar Daugherty Authenticated and . [facility]
== END ==
PROVIDERS: PCP Family Medicine; Visit Provider Family Medicine
DX: R60.9 Edema, unspecified (principal)
CPT/HCPCS: 73590

== ENCOUNTER 2024-04-06 11:12 | Outpatient (CLI) | payer MEDICARE, SELFPAY ==
--- NOTE | 2024-04-06 11:18 | XR_ITS ---
FINAL REPORT TECHNIQUE: 4 views right tibia and fibula CLINICAL HISTORY: LOWER EXTREMITY CELLUITIS COMPARISON: None FINDINGS: RIGHT TIBIA FIBULA: There is no acute fracture or dislocation. The joint spaces are intact. There are no radiopaque foreign bodies identified in the soft tissues, and no soft tissue gas is present. IMPRESSION: No acute bony abnormality identified. No radiopaque foreign bodies are present in the soft tissues, and no soft tissue gas is present. Reviewed, Interpreted and Dictated by Haydee Gilmore MD Transcribed by Monie Monet Authenticated and [facility]
== END 2024-04-06 23:59 | disposition home or self-care (01) ==
LOC: RAD 11:14
PROVIDERS: PCP Family Medicine; Visit Provider Family Medicine
DX: L03.115 Cellulitis of right lower limb (principal)
CPT/HCPCS: 73590

== ENCOUNTER 2024-05-01 12:35 | Emergency (ER) | payer MEDICARE, SELFPAY ==
[2024-05-01] VITALS (9 sets, daily range): BP systolic 119–166; BP diastolic 71–85; PULSE 70; RESP 9–16; TEMP 36.5–36.7; O2SAT 89–99; BMI 35.2
--- NOTE | 2024-05-01 12:41 | PC.NURSE ---
Fingerstick glucose 124 at 1241.
--- NOTE | 2024-05-01 12:42 | ED_ITS ---
<Statement entered by Jacquelin Andrews DO - 05/01/24 22:16> I was consulted by the YA, and we discussed the complexity of the problems being addressed. I approved the treatment and management plan for this patient's care in the emergency department, thus performing a substantive portion of the medical decision making. Jacquelin Andrews DO Discharge Plan Disposition Patient Disposition: Home, Self-Care Condition: Good Chief Complaint: Neuro Symptoms/Deficit Prescriptions Prescriptions: No Action aspirin [Adult Low Dose Aspirin] 81 mg tablet,delayed release (DR/EC) 81 mg PO .[id number] atorvastatin 20 mg tablet 20 mg PO QDAY hydrochlorothiazide 25 mg tablet 25 mg PO QDAY bisoprolol fumarate 10 mg tablet 10 mg PO DAILY Qty: 90 1RF Eliquis 5 mg tablet See Rx Instructions .ROUTE .COMPLEX Qty: 180 2RF Dose Instruction: TAKE 1 TABLET BY MOUTH TWICE DAILY Rx Instructions: TAKE 1 TABLET BY MOUTH TWICE DAILY furosemide 20 mg tablet 20 mg PO DAILY amlodipine-benazepril 1 EACH capsule 1 cap PO DAILY Referrals Follow up/Referrals: Susan Upton MD [Primary Care Provider] - See instructions Clinical Impressions Clinical Impression: Hypokalemia, Hypomagnesemia, Therapeutic misadventure Print Language Print Language: Macedonian Discharge ED Provider: Andrew Dutton General Adult HPI <ZARIA Shukla - Last Filed: 05/01/24 16:32> General Chief complaint: Neuro Symptoms/Deficit Stated complaint: abd pain, tingling in hands and face, dizzy Time Seen by Provider: 05/01/24 12:42 History of Present Illness HPI narrative: Patient presents for evaluation of sleeplessness jitteriness and anxiety. Patient went to his PCP last week and requested medication to help him lose weight. His PCP increased his Lasix and placed him on phentermine 37.5. Patient states that he has been extremely anxious unable to sleep since. Patient only took half a pill yesterday and has not taken it at all today. He denies any chest pain shortness of breath fever chills hemoptysis hematochezia melena nausea vomiting diarrhea. Patient has a history of atrial fibrillation, cardiac pacemaker for third-degree heart block, Related Data Home Medications ?Medication ?Instructions ?Recorded ?Confirmed atorvastatin 20 mg tablet 20 mg PO QDAY Cholesterol 03/27/17 05/01/24 hydrochlorothiazide 25 mg tablet 25 mg PO QDAY Fluid 03/27/17 05/01/24 amlodipine 5 mg-benazepril 40 mg 1 cap PO DAILY HTN 05/01/18 05/01/24 capsule aspirin 81 mg tablet,delayed [id number] [facility] 05/17/21 05/01/24 release (Adult Low Dose Aspirin) furosemide 20 mg tablet 20 mg PO DAILY 05/01/24 05/01/24 Previous Rx's ?Medication ?Instructions ?Recorded bisoprolol fumarate 10 mg tablet 10 mg PO DAILY #90 tabs 06/01/23 apixaban 5 mg tablet (Eliquis) See Rx Instructions .Route 02/17/24 .COMPLEX #180 tabs Allergies Allergy/AdvReac Type Severity Reaction Status Date / Time morphine AdvReac Nausea Verified 12/10/23 09:39 [facility] <ZARIA Shukla - Last Filed: 05/01/24 16:32> [facility] Disclaimer: The information contained in this section may have been updated after the patient was seen, as this information can be updated by other users. Medical History Supraventricular tachycardia Kidney stone GERD (gastroesophageal reflux disease) Palpitations Atrial fibrillation Cardiac pacemaker in situ HTN (hypertension) HLD (hyperlipidemia) Family History Other Asthma Social History Smoking Status: Never smoker alcohol intake: never substance use type: denies use current occupational status: other Travel in the last 8 weeks: Inside the [place] household members: spouse housing: house current occupational exposures/hazards: No caffeine: Yes Have you lived/traveled outside [place] in past 30 days?: No Contact w/someone who lives/traveled outside US past 30 days?: No Exposure to someone with infectious disease in past 14 days?: No Do you have a fever (greater than 100.4 F or 38 C)?: No Have you tested positive for COVID-19: No Exposed to someone with COVID-19 in past 14 days?: No Do you have a sore throat?: No Do you have a cough?: No Do you have any weakness?: No Do you have any diarrhea?: No Are you experiencing any unusual bleeding?: No Do you have any muscle aches/pain?: No Do you have any abdominal pain?: Yes Are you experiencing loss of taste or smell?: No Other Medical History Have you received the Flu Vaccine for this season: Yes Have you received the Pneumonia Vaccine: Yes <ZARIA Shukla - Last Filed: 05/01/24 16:32> ROS Obtained: Yes Systems reviewed as appropriate & no additional complaints except as documented Physical Exam <ZARIA Shukla - Last Filed: 05/01/24 16:32> General General appearance: alert and in no apparent distress Respiratory Respiratory exam: Present normal lung sounds bilaterally Cardiovascular Cardiovascular exam: Present regular rate Neurological Exam Neurological exam: Present alert and oriented X3 Medical Decision Making <ZARIA Shukla - Last Filed: 05/01/24 16:32> Medical Records Medical records reviewed: Yes I reviewed the patient's medical records. Screening: Per USPSTF and CDC recommendations, given the prevalence of disease in our region, it is our hospital?s policy to screen for HIV and viral Hepatitis for all patients aged 18 and over and those with ongoing risk factors. Hu Inquiry Pt receiving controlled substance: No Vital Signs: 05/01/24 12:36 05/01/24 13:45 05/01/24 14:00 Temperature 97.7 F Temperature Source Oral Pulse Rate 70 70 Pulse Rate [Radial] 70 Respiratory Rate 16 Blood Pressure 124/77 119/71 Blood Pressure [R Arm] 166/85 H Blood Pressure Mean [R Arm] 112 Blood Pressure Source [R Arm] Automatic Cuff 02 Sat by Pulse Oximetry 97 98 98 Oxygen Delivery Method Room Air Room Air Room Air 05/01/24 14:30 05/01/24 14:45 05/01/24 15:00 Temperature Temperature Source Pulse Rate 70 70 70 Pulse Rate [Radial] Respiratory Rate 16 9 L 12 Blood Pressure 130/79 128/77 136/83 Blood Pressure [R Arm] Blood Pressure Mean [R Arm] Blood Pressure Source [R Arm] 02 Sat by Pulse Oximetry 99 97 89 L Oxygen Delivery Method Room Air Room Air Room Air 05/01/24 15:15 05/01/24 15:30 Temperature Temperature Source Pulse Rate 70 70 Pulse Rate [Radial] Respiratory Rate 16 15 Blood Pressure 141/83 H 134/82 Blood Pressure [R Arm] Blood Pressure Mean [R Arm] Blood Pressure Source [R Arm] 02 Sat by Pulse Oximetry 94 L 96 Oxygen Delivery Method Room Air Room Air Lab Data Lab results reviewed: Yes I reviewed the patient's lab results. Lab Results 05/01/24 13:09: WBC 9.5, RBC 5.85, Hgb 18.5 H, Hct 49.6, MCV 84.8, MCH 31.3 H, M CHC 36.9 H, RDW 13.1, Plt Count 221, MPV 10.6 H, Neut % (Auto) 59.9, Lymph % (Auto) 23.9, [place] % (Auto) 13.7 H, Eos % (Auto) 1.4, Baso % (Auto) 0.7, Neut # (Auto) 5.7, Lymph # (Auto) 2.3, [place] # (Auto) 1.3 H, Eos # (Auto) 0.1, Baso # (Auto) 0.1, Sodium 132 L, Potassium 2.7 L*, Chloride 94 L, Carbon Dioxide 24, A nion Gap 16.7 H, BUN 20, Creatinine 1.50 H, Estimated Creat Clear 74, Estimated GFR 46 L, Est GFR ( Amer) 56 L, Glucose 122 H, Calcium 9.5, Phosphorus 2.2 L, Magnesium 1.4 L, Total Bilirubin 3.2 H, AST 54, ALT 48, Alkaline Phosphatase 94, Troponin I < 0.01, Total Protein 7.7, Albumin 4.6, Globulin 3.1, Albumin/Globulin Ratio 1.5, TSH 4.95 H, Free T4 Index 4.7 L, Thyroxine (T4) 12.6 H, T3 Uptake 37, HCV Ab KAREN w/Rflx PCR Qn Negative, HIV Ag/Ab Combo Qual Negative 05/01/24 13:09 05/01/24 13:09 Orders (Tests/Meds): ED MEDICATIONS Generic Name Dose Route Start Last Admin Trade Name Freq PRN Reason Stop Dose Admin Potassium Chloride/Water 100 mls @ 50 mls/hr 05/01/24 13:40 05/01/24 15:34 Potassium Chloride 20meq/100ml Ivpb IV 05/01/24 17:39 50 mls/hr Q2H CEE Administration Sodium Chloride 8 ml 05/01/24 12:46 Sodium Chloride 0.9% 10ml Vial IV 05/31/24 12:45 NEEDED PRN dilute pepcid Sodium Chloride 10 ml 05/01/24 13:02 Sodium Chloride 0.9% 10ml Vial IV 05/31/24 13:01 NEEDED PRN to Dilute Lorazepam inj Discontinued Medications Generic Name Dose Route Start Last Admin Trade Name Sulaimanq PRN Reason Stop Dose Admin Magnesium Sulfate 2 gm in 50 mls @ 50 mls/hr 05/01/24 13:38 05/01/24 13:49 Magnesium Sulfate 2gm/50ml Premix IV 05/01/24 14:37 50 mls/hr ONCE ONE Administration Lorazepam 1 mg 05/01/24 13:02 05/01/24 13:20 Lorazepam 2mg/Ml Vial IV 05/01/24 13:03 1 mg ONCE ONE Administration ORDERS Category Date Time Status CBC w/Auto Diff [Complete Blood Count Auto Diff] Stat Lab 05/01/24 13:09 Completed CMP [Comprehensive Metabolic Panel] Stat Lab 05/01/24 13:09 Completed HIV Combo Stat Lab 05/01/24 13:09 Completed Hepatitis C Ab Qual. W/ RFX Stat Lab 05/01/24 13:09 Completed Magnesium Stat Lab 05/01/24 13:09 Completed Phosphorous Stat Lab 05/01/24 13:09 Completed Thyroid Panel Stat Lab 05/01/24 13:09 Completed Trop I [Troponin I] Stat Lab 05/01/24 13:09 Completed Troponin I Q3H Lab 05/01/24 16:15 Ordered Troponin I Q3H Lab 05/01/24 19:15 Ordered Medical Decision Narrative: In summary patient is a 73-year-old male who presents to the emergency department for evaluation of sleeplessness and anxiety. Patient is initially normotensive at 166/85 with a heart rate of 70 with a paced rhythm on the bedside monitor breathing 16 times a minute satting at 97% on room air upon arrival, afebrile at 97.7. Physical exam is remarkable for a well-nourished well-developed very pleasant 73-year-old gentleman who is currently in no acute distress. Breath sounds are clear and equal bilaterally to the bases without adventitious sounds heart sounds are normal abdomen is soft without rebound or guarding or rigidity normal bowel sounds. Patient does have a fine rapid tremor in his hands and his feet. Differential diagnosis includes therapeutic misadventure, electrolyte abnormality, ACS etc. Initial workup will be conducted with hematologic labs twelve-lead EKG.. Initial interventions include crystalloid bolus and 1 mg of Ativan. Initial workup reviewed by me and his initial labs show normal white count normal H&H however his chemistries show a significant hypokalemia of 2.7 creatinine is 1.5 GFR is 46 both appear to be at his baseline in comparison to 2019 and I do not have any data in the interval, magnesium is critically low at 1.4 troponin is undetectable at 0.01 TSH is 4.95 and the remainder of his hematologic labs are nonactionable. We have begun IV repletion of his potassium and magnesium. Given this the patient was placed in observation status at 1340. Medical necessity for observational status is electrolyte repletion (magnesium and potassium). The patient was provided serial reevaluations continuous cardiac monitoring and pulse oximeter while awaiting results. Patient received complete repletion without difficulty and upon reevaluation felt significantly better after administration of Ativan and is now asymptomatic. Given this patient is appropriate for discharge at this time with close follow-up with his PCP within 48 hours for lab recheck, recommendation that he discontinue phentermine, recommendation that he take potassium repletion with the Lasix if he continues to take it. Total time in observation was 3 hours. I was consulted by the YA, and we discussed the complexity of the problems being addressed. I approved the treatment and management plan for this patient's care in the emergency department, thus performing a substantive portion of the medical decision making. Patient is having medicine adverse reaction and has electrolyte deficiencies which are being repleted throughout my care in the emergency department. Repletion and repeat assessment pending at time of transition of care to the oncoming physician, Dr. Andrews. Andrew Dutton MD <Andrew Dutton MD - Last Filed: 05/01/24 15:11> Vital Signs: 05/01/24 12:36 05/01/24 13:45 05/01/24 14:00 Temperature 97.7 F Temperature Source Oral Pulse Rate 70 70 Pulse Rate [Radial] 70 Respiratory Rate 16 Blood Pressure 124/77 119/71 Blood Pressure [R Arm] 166/85 H Blood Pressure Mean [R Arm] 112 Blood Pressure Source [R Arm] Automatic Cuff 02 Sat by Pulse Oximetry 97 98 98 Oxygen Delivery Method Room Air Room Air Room Air 05/01/24 14:30 05/01/24 14:45 05/01/24 15:00 Temperature Temperature Source Pulse Rate 70 70 70 Pulse Rate [Radial] Respiratory Rate 16 9 L 12 Blood Pressure 130/79 128/77 136/83 Blood Pressure [R Arm] Blood Pressure Mean [R Arm] Blood Pressure Source [R Arm] 02 Sat by Pulse Oximetry 99 97 89 L Oxygen Delivery Method Room Air Room Air Room Air 05/01/24 15:15 05/01/24 15:30 Temperature Temperature Source Pulse Rate 70 70 Pulse Rate [Radial] Respiratory Rate 16 15 Blood Pressure 141/83 H 134/82 Blood Pressure [R Arm] Blood Pressure Mean [R Arm] Blood Pressure Source [R Arm] 02 Sat by Pulse Oximetry 94 L 96 Oxygen Delivery Method Room Air Room Air Lab Data Lab Results 05/01/24 13:09: WBC 9.5, RBC 5.85, Hgb 18.5 H, Hct 49.6, MCV 84.8, MCH 31.3 H, M CHC 36.9 H, RDW 13.1, Plt Count 221, MPV 10.6 H, Neut % (Auto) 59.9, Lymph % (Auto) 23.9, [place] % (Auto) 13.7 H, Eos % (Auto) 1.4, Baso % (Auto) 0.7, Neut # (Auto) 5.7, Lymph # (Auto) 2.3, [place] # (Auto) 1.3 H, Eos # (Auto) 0.1, Baso # (Auto) 0.1, Sodium 132 L, Potassium 2.7 L*, Chloride 94 L, Carbon Dioxide 24, A nion Gap 16.7 H, BUN 20, Creatinine 1.50 H, Estimated Creat Clear 74, Estimated GFR 46 L, Est GFR ( Amer) 56 L, Glucose 122 H, Calcium 9.5, Phosphorus 2.2 L, Magnesium 1.4 L, Total Bilirubin 3.2 H, AST 54, ALT 48, Alkaline Phosphatase 94, Troponin I < 0.01, Total Protein 7.7, Albumin 4.6, Globulin 3.1, Albumin/Globulin Ratio 1.5, TSH 4.95 H, Free T4 Index 4.7 L, Thyroxine (T4) 12.6 H, T3 Uptake 37, HCV Ab KAREN w/Rflx PCR Qn Negative, HIV Ag/Ab Combo Qual Negative Orders (Tests/Meds): ED MEDICATIONS Generic Name Dose Route Start Last Admin Trade Name Freq PRN Reason Stop Dose Admin Potassium Chloride/Water 100 mls @ 50 mls/hr 05/01/24 13:40 05/01/24 15:34 Potassium Chloride 20meq/100ml Ivpb IV 05/01/24 17:39 50 mls/hr Q2H CEE Administration Sodium Chloride 8 ml 05/01/24 12:46 Sodium Chloride 0.9% 10ml Vial IV 05/31/24 12:45 NEEDED PRN dilute pepcid Sodium Chloride 10 ml 05/01/24 13:02 Sodium Chloride 0.9% 10ml Vial IV 05/31/24 13:01 NEEDED PRN to Dilute Lorazepam inj Discontinued Medications Generic Name Dose Route Start Last Admin Trade Name Freq PRN Reason Stop Dose Admin Magnesium Sulfate 2 gm in 50 mls @ 50 mls/hr 05/01/24 13:38 05/01/24 13:49 Magnesium Sulfate 2gm/50ml Premix IV 05/01/24 14:37 50 mls/hr ONCE ONE Administration Lorazepam 1 mg 05/01/24 13:02 05/01/24 13:20 Lorazepam 2mg/Ml Vial IV 05/01/24 13:03 1 mg ONCE ONE Administration ORDERS Category Date Time Status CBC w/Auto Diff [Complete Blood Count Auto Diff] Stat Lab 05/01/24 13:09 Completed CMP [Comprehensive Metabolic Panel] Stat Lab 05/01/24 13:09 Completed HIV Combo Stat Lab 05/01/24 13:09 Completed Hepatitis C Ab Qual. W/ RFX Stat Lab 05/01/24 13:09 Completed Magnesium Stat Lab 05/01/24 13:09 Completed Phosphorous Stat Lab 05/01/24 13:09 Completed Thyroid Panel Stat Lab 05/01/24 13:09 Completed Trop I [Troponin I] Stat Lab 05/01/24 13:09 Completed Troponin I Q3H Lab 05/01/24 16:15 Ordered Troponin I Q3H Lab 05/01/24 19:15 Ordered ECG Data Tracing #1: Independently interpreted by me rate is 69, rhythm is regular, axis is leftward deviated, ventricular paced, Sgarbossa negative. No ST elevation in anatomical contiguous leads. QTc 531. Medical Decision Narrative: In summary patient is a 73-year-old male who presents to the emergency department for evaluation of sleeplessness and anxiety. Patient is initially normotensive at 166/85 with a heart rate of 70 with a paced rhythm on the bedside monitor breathing 16 times a minute satting at 97% on room air upon arrival, afebrile at 97.7. Physical exam is remarkable for a well-nourished well-developed very pleasant 73-year-old gentleman who is currently in no acute distress. Breath sounds are clear and equal bilaterally to the bases without adventitious sounds heart sounds are normal abdomen is soft without rebound or guarding or rigidity normal bowel sounds. Patient does have a fine rapid tremor in his hands and his feet. Differential diagnosis includes therapeutic misadventure, electrolyte abnormality, ACS etc. Initial workup will be conducted with hematologic labs twelve-lead EKG.. Initial interventions include crystalloid bolus and 1 mg of Ativan. Initial workup reviewed by me [hematologic labs are remarkable for... Imaging remarkable for... Urinalysis remarkable for]. Upon repeat evaluation [patient had acceptable resolution of symptoms, had persistent pain for which additional interventions were conducted (describe interventions), tolerated p.o., was ambulatory, etc.]. Given this [patient is appropriate for discharge at this time and will be discharged with a prescription for... The case was discussed with hospital medicine regarding management and they will admit the patient their service for continued evaluation at this time... Etc.] the patient was placed in observation status at 1340. Medical necessity for observational status is electrolyte repletion (magnesium and potassium). The patient was provided serial reevaluations sinuous cardiac monitoring and pulse oximeter while awaiting results. [Results of testing during observation remarkable for:]. [Because of these results I feel the patient can be discharged with follow-up with her PCP versus I feel the patient requires admission due to]. Total time in observation was [total time]. I was consulted by the YA, and we discussed the complexity of the problems being addressed. I approved the treatment and management plan for this patient's care in the emergency department, thus performing a substantive portion of the medical decision making. Patient is having medicine adverse reaction and has electrolyte deficiencies which are being repleted throughout my care in the emergency department. Repletion and repeat assessment pending at time of transition of care to the oncoming physician, Dr. Andrews. Andrew Dutton MD Critical Care <Andrew Dutton MD - Last Filed: 05/01/24 15:11> Critical Care Time Critical Care Time: Yes Attestation: On 05/01/24, the high probability of a clinically significant, sudden or life threatening deterioration of the following system(s) required my full and direct attention, intervention and personal management. The time I documented below is in addition to time spent performing reported procedures but includes the following listed in this critical care notation. Total Time Total Critical Care Time: 35
[2024-05-01] MEDS: LORazepam 2MG/ML VIAL 1 MG IV (13:20)
[2024-05-01 13:24] LABS: Basophils # 0.1 K/mm3 (0-0.2); Basophils % 0.7 % (0.1-2.0); Eosinophils # 0.1 K/mm3 (0.0-0.4); Eosinophils % 1.4 % (0.1-12.0); Hematocrit 49.6 % (42.0-52.0); Lymphocytes # 2.3 K/mm3 (0.7-4.5); Lymphocytes % 23.9 % (10-50); Mean Corpuscular HGB Conc 36.9 g/dL (31.8-35.4); Mean Corpuscular Hemoglobin 31.3 pg (27.0-31.2); Mean Corpuscular Volume 84.8 fl (80-94); Mean Platelet Volume 10.6 fl (7.4-10.4); Monocytes # 1.3 K/mm3 (0.1-1.0); Monocytes % 13.7 % (1.7-9.3); Neutrophils # 5.7 K/mm3 (1.8-7.8); Neutrophils % 59.9 % (37.0-80.0); Platelet Count 221 K/mm3 (142-424); Red Blood Count 5.85 M/mm3 (4.60-6.20); Red Cell Distribution Width 13.1 % (11.5-17.5); White Blood Count 9.5 K/mm3 (4.8-10.8)
--- NOTE | 2024-05-01 13:29 | ECG_ITS ---
APPROVED REPORT Exam: Resting ECG HR:69 bpm ECG Measurements Heart Rate 69 AXES QRSd 185 QRS -80 QT 511 T 110 QTc 531 Conclusion ELECTRONIC VENTRICULAR PACEMAKER ABNORMAL RHYTHM ECG Electronically signed by : ANNETTE HAQUE, 05/01/2024 23:22:22
[2024-05-01 13:33] LABS: Albumin Level 4.6 g/dl (3.5-5.0); Chloride 94 mmol/L (98-107); Sodium 132 mmol/L (136-145)
[2024-05-01 13:34] LABS: Hemoglobin 18.5 g/dL (14.1-18.0)
[2024-05-01 13:36] LABS: Alanine Aminotransferase 48 U/L (12-78); Albumin/Globulin Ratio 1.5 (1.1-1.8); Alkaline Phosphatase 94 U/L (38-126); Anion Gap 16.7 mEq/L (5-15); Aspartate Amino Transferase 54 U/L (17-59); Bilirubin,Total 3.2 mg/dl (0.2-1.3); Blood Urea Nitrogen 20 mg/dl (9-20); Carbon Dioxide 24 mmol/L (22.0-30.0); Creatinine Clearance Estimated 74 mL/min (50-200); Estimated Glomerular Filt Rate 46 ml/min (>60); GFR (African American) 56 ML/MIN (>60); Globulin 3.1 g/dL (1.3-3.2); Phosphorous 2.2 mg/dl (2.5-4.5); Total Protein,Serum 7.7 g/dl (6.3-8.2)
[2024-05-01 13:37] LABS: Calcium 9.5 mg/dl (8.4-10.2); Glucose 122 mg/dl (74-100); Magnesium 1.4 mg/dl (1.6-2.3)
[2024-05-01 13:38] LABS: Potassium 2.7 mmoL/L (3.5-5.1)
--- NOTE | 2024-05-01 13:46 | PC.NURSE ---
ROUNDED ON THE PT. THE PT VOICES THAT HE DOES NOT NEED ANYTHING AT THIS TIME. CALL LIGHT IS WITHIN REACH OF THE PT. FAMILY MEMBER IS PRESENT AT THE BEDSIDE.
[2024-05-01] MEDS: MAGNESIUM SULFATE IN WATER 2 GM/50 ML PIGGYBACK IV (13:49)
[2024-05-01 13:53] LABS: Triiodothryronine (T3) Uptake 37 % (23.5-40.5)
[2024-05-01 13:54] LABS: Free Thyroxine Index 4.7 ug/dL (5.93-13.13); T4 (Thyroxine) 12.6 ug/dl (5.53-11.0)
[2024-05-01 13:55] LABS: Troponin I < 0.01 ng/ml (0.00-0.034)
[2024-05-01 14:07] LABS: Thyroid Stimulating Hormone 4.95 uIU/mL (0.465-4.68)
[2024-05-01 14:18] LABS: HIV Combo NEGATIVE (Negative)
[2024-05-01 14:26] LABS: Hepatitis C Ab Qual. W/ RFX NEGATIVE (Negative)
[2024-05-01] MEDS: KCl 20mEq/100ml 100 ML 50 MEQ IV ×2 (14:27→15:34)
== END 2024-05-01 16:52 | disposition home or self-care (01) ==
PROVIDERS: Physician Assistant; Emergency Provider Emergency Medicine; PCP Family Medicine
DX: E83.42 Hypomagnesemia (principal); E87.6 Hypokalemia; R10.9 Unspecified abdominal pain; R42 Dizziness and giddiness; R20.2 Paresthesia of skin; F41.9 Anxiety disorder, unspecified; G47.00 Insomnia, unspecified; Y69 Unspecified misadventure during surgical and medical care
CPT/HCPCS: 80053; 83735; 84100; 84436; 84443; 84479; 84484; 85025; 86803; 87389; 93005; 96365; 96374; 99291; J2060; J3475

== ENCOUNTER 2024-06-08 10:34 | Outpatient (CLI) | payer MEDICARE, SELFPAY ==
--- NOTE | 2024-06-08 10:30 | CA_ITS ---
FINAL REPORT TECHNIQUE: Compression hopkins scale and Doppler evaluation CLINICAL HISTORY: EDEMA RT CALF X 2 YEARS SINCE INJURY ,PT ON ELIQUS COMPARISON: None FINDINGS: Femoral and popliteal veins show normal compressibility and flow. Visualized portion of the calf veins are patent by Doppler exam. IMPRESSION: No evidence of right lower extremity deep venous thrombosis Reviewed, Interpreted and Dictated by Haydee Gilmore MD Transcribed by Diamond Lamas Authenticated and . [facility]
[2024-06-08 12:47] LABS: Hematocrit 48.8 % (42.0-52.0); Hemoglobin 17.5 g/dL (14.1-18.0); Mean Corpuscular Hemoglobin 31.9 pg (27.0-31.2); Mean Corpuscular Volume 88.9 fl (80-94); Red Blood Count 5.49 M/mm3 (4.60-6.20); White Blood Count 7.3 K/mm3 (4.8-10.8)
[2024-06-08 12:48] LABS: Basophils # 0.1 K/mm3 (0-0.2); Basophils % 0.8 % (0.1-2.0); Eosinophils # 0.2 K/mm3 (0.0-0.4); Eosinophils % 2.6 % (0.1-12.0); Lymphocytes # 1.5 K/mm3 (0.7-4.5); Lymphocytes % 20.4 % (10-50); Mean Corpuscular HGB Conc 35.9 g/dL (31.8-35.4); Mean Platelet Volume 11.4 fl (7.4-10.4); Monocytes # 0.9 K/mm3 (0.1-1.0); Monocytes % 11.9 % (1.7-9.3); Neutrophils # 4.7 K/mm3 (1.8-7.8); Platelet Count 221 K/mm3 (142-424); Red Cell Distribution Width 13.3 % (11.5-17.5)
== END 2024-06-08 23:59 | disposition home or self-care (01) ==
LOC: RT 10:35
PROVIDERS: PCP Family Medicine; Visit Provider Physician Assistant
DX: D75.1 Secondary polycythemia (principal); Z95.0 Presence of cardiac pacemaker; I10 Essential (primary) hypertension; I48.0 Paroxysmal atrial fibrillation; E78.2 Mixed hyperlipidemia; R06.09 Other forms of dyspnea; R60.0 Localized edema; Z79.01 Long term (current) use of anticoagulants
CPT/HCPCS: 36415; 85025; 93971

== ENCOUNTER 2024-07-20 09:56 | Outpatient (CLI) | payer MEDICARE, SELFPAY ==
[2024-07-20 10:46] LABS: Basophils # 0.1 K/mm3 (0-0.2); Basophils % 0.7 % (0.1-2.0); Eosinophils # 0.1 Kmm3 (0.0-0.4); Eosinophils % 1.8 % (0.1-12.0); Hematocrit 50.5 % (42.0-52.0); Lymphocytes # 1.2 K/mm3 (0.7-4.5); Lymphocytes % 17.6 % (10-50); Mean Corpuscular HGB Conc 35.8 g/dL (31.8-35.4); Mean Corpuscular Hemoglobin 32.1 pg (27.0-31.2); Mean Corpuscular Volume 89.5 fl (80-94); Mean Platelet Volume 11.1 fl (7.4-10.4); Monocytes # 0.8 K/mm3 (0.1-1.0); Monocytes % 11.6 % (1.7-9.3); Neutrophils # 4.7 K/mm3 (1.8-7.8); Nucleated Red Blood Cells # 0 10^3/uL; Nucleated Red Blood Cells % 0 %; Platelet Count 192 K/mm3 (142-424); Red Blood Count 5.64 M/mm3 (4.60-6.20); Red Cell Distribution Width-SD 45.7 fL; White Blood Count 6.8 K/mm3 (4.8-10.8)
[2024-07-20 10:56] LABS: Hemoglobin 18.1 g/dL (14.1-18.0)
[2024-07-20 11:19] LABS: Albumin Level 3.9 g/dl (3.5-5.0); Chloride 102 mmol/L (98-107); Sodium 137 mmol/L (136-145)
[2024-07-20 11:20] LABS: Potassium 3.5 mmoL/L (3.5-5.1)
[2024-07-20 11:22] LABS: Alanine Aminotransferase 40 U/L (12-78); Anion Gap 9.5 mEq/L (5-15); Aspartate Amino Transferase 41 U/L (17-59); Bilirubin,Unconjugated 1.9 mg/dL (0.0-1.1); Blood Urea Nitrogen 22 mg/dl (9-20); Carbon Dioxide 29 mmol/L (22.0-30.0); Cholesterol 94 mg/dl (140-200); Estimated Glomerular Filt Rate 50 ml/min (>60); GFR (African American) 60 ML/MIN (>60); Total Protein,Serum 6.5 g/dl (6.3-8.2); Triglycerides 66 mg/dl (30-150); VLDL Cholesterol 13 mg/dL (0-40)
[2024-07-20 11:23] LABS: Alkaline Phosphatase 73 U/L (38-126); Bilirubin,Direct 0.1 mg/dl (0.0-0.4); Bilirubin,Indirect 1.9 mg/dL (0.0-0.9); Calcium 9.3 mg/dl (8.4-10.2); Chol/HDL Ratio 2.5 (1-3.5); Glucose 116 mg/dl (74-100); HDL Cholesterol 37 mg/dl (40-60); Magnesium 1.4 mg/dl (1.6-2.3)
[2024-07-20 11:34] LABS: Direct LDL Cholesterol 43.43 mg/dL (100-129)
[2024-07-20 11:38] LABS: Free T4 (Free Thyroxine) 1.02 ng/dl (0.78-2.19)
[2024-07-20 11:52] LABS: Thyroid Stimulating Hormone 2.89 uIU/mL (0.465-4.68)
== END 2024-07-20 23:59 | disposition home or self-care (01) ==
LOC: LAB 09:56
PROVIDERS: PCP Family Medicine; Visit Provider Nurse Practitioner Family
DX: R60.0 Localized edema (principal); D75.1 Secondary polycythemia; Z95.0 Presence of cardiac pacemaker; I10 Essential (primary) hypertension; E78.5 Hyperlipidemia, unspecified; I48.0 Paroxysmal atrial fibrillation; E83.42 Hypomagnesemia; E87.6 Hypokalemia
CPT/HCPCS: 36415; 80048; 80061; 80076; 83735; 84439; 84443; 85025

== ENCOUNTER 2024-08-10 13:03 | Emergency (ER) | payer MEDICARE, SELFPAY ==
--- NOTE | 2024-08-10 13:11 | ED_ITS ---
Discharge Plan Disposition Patient Disposition: Home, Self-Care Condition: Good Prescriptions Prescriptions: No Action aspirin [Adult Low Dose Aspirin] 81 mg tablet,delayed release (DR/EC) 81 mg PO Q OTHER DAY hydrochlorothiazide 50 mg tablet 50 mg PO DAILY Qty: 30 5RF benazepril 40 mg tablet 40 mg PO DAILY Qty: 30 5RF (DME) comp.stocking,thigh,long,x-lrg Misc See Rx Instructions .Route Qty: 12 0RF Rx Instructions: As directed Eliquis 5 mg tablet 0RF atorvastatin 20 mg tablet 20 mg PO QDAY carvedilol 25 mg tablet 50 mg PO BID 30 Days Qty: 120 2RF Rx Instructions: must administer with a meal/food amlodipine 5 mg tablet 5 mg PO BID 30 Days Qty: 60 3RF Eliquis 5 mg tablet See Rx Instructions .ROUTE .COMPLEX Qty: 180 2RF Dose Instruction: TAKE 1 TABLET BY MOUTH TWICE DAILY Rx Instructions: TAKE 1 TABLET BY MOUTH TWICE DAILY magnesium oxide 400 mg magnesium capsule 400 mg PO DAILY Qty: 30 0RF Referrals Follow up/Referrals: Susan Upton MD [Primary Care Provider] - See instructions Activity Restrictions/Add. Instructions Additional Instructions/Restrictions: As we discussed I recommend restarting taking your magnesium daily your potassium daily. You need to follow-up with cardiology as scheduled next week. If your paresthesias return follow-up with your PCP for recheck your labs or return to the ER as needed Clinical Impressions Clinical Impression: Paresthesia, Hypokalemia, Hypomagnesemia, Hypophosphatemia Print Language Print Language: Indonesian Discharge ED Provider: Grayson Martinez General Adult HPI <ZARIA Shukla - Last Filed: 08/10/24 15:06> General Chief complaint: Recheck/Abnormal Lab/Rx Stated complaint: headache face/hands tingly dizziness Time Seen by Provider: 08/10/24 13:11 History of Present Illness HPI narrative: Patient presents for evaluation of tingling. Patient states that he has had multiple medication changes over the last several months in regards to his blood pressure. He has been off and on multiple medications including amlodipine hydrochlorothiazide potassium and magnesium. Patient woke up this morning and he felt tingly all over but primarily in his hands bilaterally. He denies any focal neurologic deficits and no chest pain shortness of breath fever chills hemoptysis hematochezia melena nausea vomit diarrhea palpitations abdominal pain. Related Data Home Medications ?Medication ?Instructions ?Recorded ?Confirmed atorvastatin 20 mg tablet 20 mg PO QDAY Cholesterol 03/27/17 08/03/24 aspirin 81 mg tablet,delayed 81 mg PO Q OTHER DAY [facility] 06/08/24 08/03/24 release (Adult Low Dose Aspirin) Previous Rx's ?Medication ?Instructions ?Recorded apixaban 5 mg tablet (Eliquis) See Rx Instructions .Route 02/17/24 .COMPLEX #180 tabs benazepril 40 mg tablet 40 mg PO DAILY #30 tabs 06/08/24 comp.stocking,thigh,long,x-lrg #12 ea 06/08/24 hydrochlorothiazide 50 mg tablet 50 mg PO DAILY #30 tabs 06/08/24 magnesium oxide 400 mg PO DAILY #30 caps 07/21/24 amlodipine 5 mg tablet 5 mg PO BID 30 days #60 tabs 08/03/24 carvedilol 25 mg tablet 50 mg (2 x 25 mg) PO BID 30 days 08/03/24 #120 tabs Allergies Allergy/AdvReac Type Severity Reaction Status Date / Time morphine AdvReac Nausea Verified 08/03/24 13:41 [facility] <ZARIA Shukla - Last Filed: 08/10/24 15:06> [facility] Disclaimer: The information contained in this section may have been updated after the patient was seen, as this information can be updated by other users. Medical History Supraventricular tachycardia Kidney stone GERD (gastroesophageal reflux disease) Palpitations Atrial fibrillation Cardiac pacemaker in situ HTN (hypertension) HLD (hyperlipidemia) Family History Other Asthma Social History Smoking Status: Never smoker alcohol intake: never substance use type: denies use current occupational status: other Travel in the last 8 weeks?: Inside the [place] household members: spouse housing: house current occupational exposures/hazards: No caffeine: Yes Have you lived/traveled outside US in past 30 days?: No Contact w/someone who lives/traveled outside US past 30 days?: No Exposure to someone with infectious disease in past 14 days?: No Do you have a fever (greater than 100.4 F or 38 C)?: No Have you tested positive for COVID-19?: No Exposed to someone with COVID-19 in past 14 days?: No Do you have a sore throat?: No Do you have a cough?: No Do you have any weakness?: Yes Do you have any diarrhea?: No Are you experiencing any unusual bleeding?: No Do you have any muscle aches/pain?: No Do you have any abdominal pain?: No Are you experiencing loss of taste or smell?: No Other Medical History Have you received the Flu Vaccine for this season: Yes Have you received the Pneumonia Vaccine: Yes <ZARIA Shukla - Last Filed: 08/10/24 15:06> ROS Obtained: Yes Systems reviewed as appropriate & no additional complaints except as documented Physical Exam <ZARIA Shukla - Last Filed: 08/10/24 15:06> General General appearance: alert and in no apparent distress Respiratory Respiratory exam: Present normal lung sounds bilaterally Cardiovascular Cardiovascular exam: Present regular rate Neurological Exam Neurological exam: Present alert and oriented X3 Medical Decision Making <ZARIA Shukla - Last Filed: 08/10/24 15:06> Medical Records Medical records reviewed: Yes I reviewed the patient's medical records. Screening: Per USPSTF and CDC recommendations, given the prevalence of disease in our region, it is our hospital?s policy to screen for HIV and viral Hepatitis for all patients aged 18 and over and those with ongoing risk factors. Hu Inquiry Pt receiving controlled substance: No Vital Signs: 08/10/24 13:28 08/10/24 13:52 08/10/24 15:05 Temperature 98.0 F 98.2 F Temperature Source Oral Oral Pulse Rate 70 Pulse Rate [Radial] 70 70 Respiratory Rate 18 18 18 Blood Pressure 120/70 Blood Pressure [Left Arm] 148/84 H 133/76 Blood Pressure Mean [Left Arm] 105 95 Blood Pressure Source Automatic Cuff Blood Pressure Source [Left Arm] Automatic Cuff Blood Pressure Position Sitting Blood Pressure Position [Left Arm] Sitting 02 Sat by Pulse Oximetry 99 99 Oxygen Delivery Method Room Air Room Air Room Air Lab Data Lab results reviewed: Yes I reviewed the patient's lab results. Lab Results 08/10/24 13:30: WBC 8.7, RBC 5.33, Hgb 17.1, Hct 47.1, MCV 88.4, MCH 32.1 H, M CHC 36.3 H, RDW 13.3, Plt Count 190, MPV 11.1 H, Neut % (Auto) 72.6, Lymph % (Auto) 15.7, [place] % (Auto) 9.3, Eos % (Auto) 1.6, Baso % (Auto) 0.6, Neut # (Auto) 6.3, Lymph # (Auto) 1.4, [place] # (Auto) 0.8, Eos # (Auto) 0.1, Baso # (Auto) 0.1, VBG pH 7.51 H, VBG pCO2 27.9 L, VBG pO2 59.3 H, VBG HCO3 21.8 L, VBG Total CO2 22.7 L, VBG O2 Saturation 92.6 H, VBG Base Excess -1.2, VBG Lactic Acid 2.9 H, Sodium 135 L, Potassium 3.3 L, Chloride 103, Carbon Dioxide 24, Anion Gap 11.3, BUN 24 H, Creatinine 1.50 H, Estimated Creat Clear 74, Estimated GFR 46 L, Est GFR ( Amer) 56 L, Glucose 158 H, Calcium 8.6, Phosphorus 1.9 L, Magnesium 1.4 L, Total Bilirubin 1.5 H, AST 40, ALT 41, Alkaline Phosphatase 80, NT-Pro-B Natriuret Pep 714 H, Total Protein 6.7, Albumin 4.0, Globulin 2.7, Albumin/Globulin Ratio 1.5 08/10/24 13:30 08/10/24 13:30 Orders (Tests/Meds): ED MEDICATIONS Discontinued Medications Generic Name Dose Route Start Last Admin Trade Name Freq PRN Reason Stop Dose Admin Magnesium Oxide 800 mg 08/10/24 14:34 08/10/24 14:48 Magnesium Oxide 400mg Tablet PO 08/10/24 14:35 800 mg ONCE ONE Administration Potassium Chloride 60 meq 08/10/24 14:29 08/10/24 14:48 Potassium Chloride 20meq Tab PO 08/10/24 14:30 60 meq ONCE ONE Administration Potassium Phosphate 250 mg 08/10/24 14:50 08/10/24 14:55 K-Phos Neutral 250mg Tablet PO 08/10/24 14:51 250 mg ONCE ONE Administration ORDERS Category Date Time Status BNP [NT Pro Brain Natriuretic Pep.] Stat Lab 08/10/24 13:30 Completed CBC w/Auto Diff [Complete Blood Count Auto Diff] Stat Lab 08/10/24 13:30 Completed CMP [Comprehensive Metabolic Panel] Stat Lab 08/10/24 13:30 Completed Magnesium Stat Lab 08/10/24 13:30 Completed Phosphorous Stat Lab 08/10/24 13:30 Completed VBG [Venous Blood Gas] Stat RT 08/10/24 13:30 Completed Medical Decision Narrative: In summary patient is a 73-year-old male who presents to the emergency department for evaluation of paresthesias. Patient is hemodynamically stable with a blood pressure 140/84 pulse 70 respiratory rate is 18 sats 99% on room air patient has normal sinus rhythm on the bedside monitor upon arrival, afebrile at 98.0. Physical exam is remarkable for Hope Coma Score 15 patient is awake alert and oriented person place circumstance cranials 2 through 12 intact grossly to exam pupils equal round reactive to light. Patient moves all 4 extremity has normal gait and station and is neurovascularly intact distally in all 4 extremities has no focal neurologic deficits. Breath sounds clear and equal bilateral to the bases with adventitious sounds cardiovascular S1-S2 regular rate and rhythm without murmurs gallops rubs or thrills, abdomen soft and tender no rebound or guarding no rigidity. Bowel sounds normal active.. Differential diagnosis includes electrolyte abnormality versus acute kidney injury versus peripheral or central cause of paresthesia. Initial workup will be conducted with hematologic labs and twelve-lead EKG after shared decision making discussion with the patient regarding his symptoms and offered advanced imaging ruling out possible central neurologic cause however patient believes that it is his electrolytes as he has been off and on magnesium and potassium.. Initial interventions were considered however patient currently is hemodynamically stable with no pain for now we will await initial workup before making an interventional decision. Initial workup reviewed by me and his hematologic labs are significant for normal white count normal H&H no neutrophilic shift VBG shows a pH of 7.51 pCO2 of 27.9 pO2 of 59.3 bicarb is 21.8 base excess -1.2 VBG lactic acid 2.9, sodium 135 potassium 3.5 BUN is 24 creatinine is 1.5 GFR is 46 phosphorus was 1.9 magnesium was 1.4 calcium was 8.6 with a normal albumin. I have ordered p.o. replacement of his potassium magnesium and phosphorus. Upon repeat evaluation patient report resolution of his paresthesias. Given this I have instructed the patient to retake his potassium and magnesium which she had not been taking at home and he already has cardiology follow-up. I have instructed him should he have return of his paresthesias he needs to return to his PCP for laboratory check or return to the emergency department as needed. Patient verbalized understanding and agreement <Grayson Martinez MD - Last Filed: 08/10/24 15:11> Vital Signs: 08/10/24 13:28 08/10/24 13:52 08/10/24 15:05 Temperature 98.0 F 98.2 F Temperature Source Oral Oral Pulse Rate 70 Pulse Rate [Radial] 70 70 Respiratory Rate 18 18 18 Blood Pressure 120/70 Blood Pressure [Left Arm] 148/84 H 133/76 Blood Pressure Mean [Left Arm] 105 95 Blood Pressure Source Automatic Cuff Blood Pressure Source [Left Arm] Automatic Cuff Blood Pressure Position Sitting Blood Pressure Position [Left Arm] Sitting 02 Sat by Pulse Oximetry 99 99 Oxygen Delivery Method Room Air Room Air Room Air Lab Data Lab Results 08/10/24 13:30: WBC 8.7, RBC 5.33, Hgb 17.1, Hct 47.1, MCV 88.4, MCH 32.1 H, M CHC 36.3 H, RDW 13.3, Plt Count 190, MPV 11.1 H, Neut % (Auto) 72.6, Lymph % (Auto) 15.7, [place] % (Auto) 9.3, Eos % (Auto) 1.6, Baso % (Auto) 0.6, Neut # (Auto) 6.3, Lymph # (Auto) 1.4, [place] # (Auto) 0.8, Eos # (Auto) 0.1, Baso # (Auto) 0.1, VBG pH 7.51 H, VBG pCO2 27.9 L, VBG pO2 59.3 H, VBG HCO3 21.8 L, VBG Total CO2 22.7 L, VBG O2 Saturation 92.6 H, VBG Base Excess -1.2, VBG Lactic Acid 2.9 H, Sodium 135 L, Potassium 3.3 L, Chloride 103, Carbon Dioxide 24, Anion Gap 11.3, BUN 24 H, Creatinine 1.50 H, Estimated Creat Clear 74, Estimated GFR 46 L, Est GFR ( Amer) 56 L, Glucose 158 H, Calcium 8.6, Phosphorus 1.9 L, Magnesium 1.4 L, Total Bilirubin 1.5 H, AST 40, ALT 41, Alkaline Phosphatase 80, NT-Pro-B Natriuret Pep 714 H, Total Protein 6.7, Albumin 4.0, Globulin 2.7, Albumin/Globulin Ratio 1.5 Orders (Tests/Meds): ED MEDICATIONS Discontinued Medications Generic Name Dose Route Start Last Admin Trade Name Freq PRN Reason Stop Dose Admin Magnesium Oxide 800 mg 08/10/24 14:34 08/10/24 14:48 Magnesium Oxide 400mg Tablet PO 08/10/24 14:35 800 mg ONCE ONE Administration Potassium Chloride 60 meq 08/10/24 14:29 08/10/24 14:48 Potassium Chloride 20meq Tab PO 08/10/24 14:30 60 meq ONCE ONE Administration Potassium Phosphate 250 mg 08/10/24 14:50 08/10/24 14:55 K-Phos Neutral 250mg Tablet PO 08/10/24 14:51 250 mg ONCE ONE Administration ORDERS Category Date Time Status BNP [NT Pro Brain Natriuretic Pep.] Stat Lab 08/10/24 13:30 Completed CBC w/Auto Diff [Complete Blood Count Auto Diff] Stat Lab 08/10/24 13:30 Completed CMP [Comprehensive Metabolic Panel] Stat Lab 08/10/24 13:30 Completed Magnesium Stat Lab 08/10/24 13:30 Completed Phosphorous Stat Lab 08/10/24 13:30 Completed VBG [Venous Blood Gas] Stat RT 08/10/24 13:30 Completed ECG Data Tracing #1: I reviewed this ECG and interpreted as documented below: (V paced rhythm 69 bpm with QRS 181, QTc 508. No acute ischemic change, Sgarbossa negative) Medical Decision Narrative: In summary patient is a 73-year-old male who presents to the emergency department for evaluation of paresthesias. Patient is hemodynamically stable with a blood pressure 140/84 pulse 70 respiratory rate is 18 sats 99% on room air patient has normal sinus rhythm on the bedside monitor upon arrival, afebrile at 98.0. Physical exam is remarkable for Hope Coma Score 15 patient is awake alert and oriented person place circumstance cranials 2 through 12 intact grossly to exam pupils equal round reactive to light. Patient moves all 4 extremity has normal gait and station and is neurovascularly intact distally in all 4 extremities has no focal neurologic deficits. Breath sounds clear and equal bilateral to the bases with adventitious sounds cardiovascular S1-S2 regular rate and rhythm without murmurs gallops rubs or thrills, abdomen soft and tender no rebound or guarding no rigidity. Bowel sounds normal active.. Differential diagnosis includes electrolyte abnormality versus acute kidney injury versus peripheral or central cause of paresthesia. Initial workup will be conducted with hematologic labs and twelve-lead EKG after shared decision making discussion with the patient regarding his symptoms and offered advanced imaging ruling out possible central neurologic cause however patient believes that it is his electrolytes as he has been off and on magnesium and potassium.. Initial interventions were considered however patient currently is hemodynamically stable with no pain for now we will await initial workup before making an interventional decision. Initial workup reviewed by me and his hematologic labs are significant for normal white count normal H&H no neutrophilic shift VBG shows a pH of 7.51 pCO2 of 27.9 pO2 of 59.3 bicarb is 21.8 base excess -1.2 VBG lactic acid 2.9, sodium 135 potassium 3.5 BUN is 24 creatinine is 1.5 GFR is 46 phosphorus was 1.9 magnesium was 1.4 calcium was 8.6 with a normal albumin. I have ordered p.o. replacement of his potassium magnesium and phosphorus. Upon repeat evaluation patient report resolution of his paresthesias. Given this I have instructed the patient to retake his potassium and magnesium which she had not been taking at home and he already has cardiology follow-up. I have instructed him should he have return of his paresthesias he needs to return to his PCP for laboratory check or return to the emergency department as needed. Patient verbalized understanding and agreement I was consulted by the YA, and we discussed the complexity of the problems being addressed. I approved the treatment and management plan for this patient's care in the Emergency Department, thus performing a substantive portion of the medical decision making. Grayson Martinez MD Critical Care <ZARIA Shukla - Last Filed: 08/10/24 15:06> Critical Care Time Critical Care Time: Yes Attestation: On 08/10/24, the high probability of a clinically significant, sudden or life threatening deterioration of the following system(s) required my full and direct attention, intervention and personal management. The time I documented below is in addition to time spent performing reported procedures but includes the following listed in this critical care notation. Total Time Total Critical Care Time: 30
--- OUTSIDE RECORDS SUMMARY | 2024-08-10 13:25 | XMS_ITS | Data Portability ---
Author Organization [facility] CONTRERAS Monge [place] CLOS[facility] Address [address] [place] [address] Care Team Providers Care Power Distributor Name Role Phone WELLERMECCA Referring Provider Assessment Encounter Date Assessment Date Assessment LastModified by Organization Details LastModified Time 01/28/2024 01/28/2024 f/u as needed Not available 01/28/2024 11:28:30 Plan of Treatment Reminders Order Date Submit Date Provider Last Modified By Organization Details Last Modified Time Details Appointments None recorded. Lab surgical pathology study 2023 024 [facility], [address] [place] [address], [phone], 18:01:01 Referral None recorded. Procedures None recorded. Surgeries None recorded. Imaging None recorded. Medication Orders None recorded. Patient TargetsNo targets recorded. Patient InstructionsNo instructions recorded. Reason for Referral None Reported. 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 Note: The diffe renti al diagn osis inclu karma an atypi sundeep fibro xanth willie versu s a pleom orphi c derma l sarco ma. It is not possi ble to make this disti nctio n on a shave biops y speci men. The lesio n shoul d be re-ex cised with negat chen dustin ns. SOURC E OF SPECI MEN: SKIN BIOPS Y, RIGHT TEMPL E CLINI SUNDEEP INFOR MATIO N: MARJAN Y PLAQU E WITH CENTR AL CRUST ING R/O KA vs SCC vs BCC D 48.5 Gross Descr iptio n: Nieves nt name and date of verif ied. Recei leslie in forma melissa label ed with the pabloe nt's name and desig nated righ t templ e is a shave biops y of skin (1.0 x 0.9 x 0.2 cm). The epide rmal surfa ce is hopkins- white , scaly , hemor rhagi c and nodul ar. The dustin n is inked blue. The speci men is trise cted and entir steven submi tted in one casse tte label ed A1. MT 01/27 02:21 PM Micro scopi c Descr iptio n: Secti ons demon strat e a shave biops y of skin. There is a derma l based proli ferat ion of atypi sundeep and pleom orphi c spind led cells arran ged in sheet s and irreg ular fasci cles. The tumor abuts and effac es the overl lewis epide rmis and is prese nt at the inked deep edge of the biops y speci men. Frequ ent mitot ic figur es, inclu ding atypi sundeep forms , are prese nt. A panel of immun ohist ochem ical stain s has been perfo rmed and the tumor cells are negat chen for pancy toker atin (AE1/ AE3), p63, SOX-1 0, S100 prote in, desmi n, CD34, and PRAME . DIMITRY DELVALLE M.D. Aminah d Out Date: 02/02 18:00 Page 1 of 1 Not Available [facility] [facility], [place], [phone], 02/03/2024 18:01:01 Result Notes None recorded. Procedures Surgical History Date Name Laterality Status Provider Name and Address Organization Details Recorded Time 4 Biopsy Skin Lesion; Tangential completed Adore Crockett [facility] 01/28/2024 11:27:19 Imaging Results None recorded. Procedure Notes None recorded. Medical Equipment None Reported. Allergies No known drug allergies Medications Name Sig Start Date Stop Date Status Note LastModified by Organization Details LastModified Time hydrochlorothiaz delta 25 mg tablet Take 1 tablet every day by oral route. active Not Available Not Available No t Available Asprin Ec Low Dose 81 mg tablet,delayed release Take 1 tablet every day by oral route. active Not Available Not Available No t Available atorvastatin active Not Available Not Available Not Available colchicine active Not Available Not Av ailable Not Available amlodipine active Not Available Not Av ailable Not Available Eliquis active Not Available Not Avail able Not Available Vitals None Recorded Social History None recorded. Functional Status None recorded. Mental Status None recorded. Family History Nothing Reported. Medical History No medical history recorded. Past Encounters Encounter ID Performer Location Encounter Start Date Encounter Closed Date Diagnosis/Indication Diagnosis SNOMED-CT Code Diagnosis ICD10 Code Diagnosis Note [id number] ARABELLA JOHNSON MD [facility] [address] [place] [address] 01/28/2024 10:41:34 01/28/2024 13:21:45 Neoplasm of uncertain behavior of skin 40084629 D48.5 Lesion of uncertain significan ce: rule out KA/SCC/BCC The risks, benefits and alternativ es of skin biopsy were reviewed with parent(s) including but not limited to unavoidabl e scar, bleeding, infection, non-diagno stic result, recurrence , need for additional procedure pending results. A biopsy was performed in the office today, See procedure section for details. Wound care discussed with patient. Leave the bandage on for 24 hrs. Clean the area daily with warm soapy water, and apply vaseline or polysporin ointment and a bandaid once daily until healed. Call the office if any increase in redness, drainage, or pain. Raised luis f orrheic keratosis [id number] 80637 L82.1 Benign Reassuranc eRecommend annual TBSESPF 30 + with zinc and titanium dioxide Health Concerns Section Related Observation LastModified by Organization Detai ls LastModified Time None Recorded Concern Status LastModified by Organization Details LastModified Time None Recorded Advance Directives Directive None Recorded Payers Insurance Date Sequence Insurance Name Policy Number Policy Davidson Covered Member ID Davidson Member ID Guarantor Name 04/13/2024 1 [employer] (MEDICARE REPLACEMENT/A DVANTAGE - PPO) Varghese Castro [id number] Varghese Castro Notes Date Note Type Note Provider Name and Address Organization Details Recorded Time 01/28/2024 text/html New Patient - referred Damian weller MD Presents for skin lesion on right mormonism and a place on back Denies any other new or changing lesions. Feels well today. Denies family history of malignant melanoma. ARABELLA JOHNSON MD [address] [place] [address], [phone], [facility] 01/29/2024 09:01:13
[2024-08-10 13:28] VITALS: BP 148/84; PULSE 70; RESP 18; TEMP 36.7; O2SAT 99; BMI 35.2
--- NOTE | 2024-08-10 13:28 | ECG_ITS ---
APPROVED REPORT Exam: Resting ECG HR:69 bpm ECG Measurements Heart Rate 69 AXES QRSd 181 QRS -63 QT 488 T 105 QTc 508 Conclusion V-paced rhythm Sgarbossa negative Electronically signed by : TIFFANIE NEWTON, 08/11/2024 18:39:09
[2024-08-10 13:47] LABS: Chloride 103 mmol/L (98-107); Potassium 3.3 mmoL/L (3.5-5.1); Sodium 135 mmol/L (136-145)
[2024-08-10 13:48] LABS: Basophils # 0.1 K/mm3 (0-0.2); Basophils % 0.6 % (0.1-2.0); Eosinophils # 0.1 Kmm3 (0.0-0.4); Eosinophils % 1.6 % (0.1-12.0); Hematocrit 47.1 % (42.0-52.0); Hemoglobin 17.1 g/dL (14.1-18.0); Immature Granulocytes # 0.02 10^3uL; Immature Granulocytes % 0.2 %; Lymphocytes # 1.4 K/mm3 (0.7-4.5); Lymphocytes % 15.7 % (10-50); Mean Corpuscular HGB Conc 36.3 g/dL (31.8-35.4); Mean Corpuscular Hemoglobin 32.1 pg (27.0-31.2); Mean Corpuscular Volume 88.4 fl (80-94); Mean Platelet Volume 11.1 fl (7.4-10.4); Monocytes # 0.8 K/mm3 (0.1-1.0); Monocytes % 9.3 % (1.7-9.3); Neutrophils # 6.3 K/mm3 (1.8-7.8); Neutrophils % 72.6 % (37.0-80.0); Nucleated Red Blood Cells # 0 10^3/uL; Nucleated Red Blood Cells % 0 %; Platelet Count 190 K/mm3 (142-424); Red Blood Count 5.33 M/mm3 (4.60-6.20); Red Cell Distribution Width 13.3 % (11.5-17.5); Red Cell Distribution Width-SD 42.5 fL; White Blood Count 8.7 K/mm3 (4.8-10.8)
[2024-08-10 13:50] LABS: Alanine Aminotransferase 41 U/L (12-78); Albumin/Globulin Ratio 1.5 (1.1-1.8); Alkaline Phosphatase 80 U/L (38-126); Anion Gap 11.3 mEq/L (5-15); Aspartate Amino Transferase 40 U/L (17-59); Bilirubin,Total 1.5 mg/dl (0.2-1.3); Blood Urea Nitrogen 24 mg/dl (9-20); Carbon Dioxide 24 mmol/L (22.0-30.0); Estimated Glomerular Filt Rate 46 ml/min (>60); GFR (African American) 56 ML/MIN (>60); Globulin 2.7 g/dL (1.3-3.2); Total Protein,Serum 6.7 g/dl (6.3-8.2)
[2024-08-10 13:51] LABS: Calcium 8.6 mg/dl (8.4-10.2); Glucose 158 mg/dl (74-100)
[2024-08-10 13:52] VITALS: BP 133/76; PULSE 70; RESP 18; O2SAT 99
[2024-08-10 13:52] LABS: VBG Base Excess -1.2 mmol/L (-2.4-2.3); VBG HCO3 21.8 mmol/L (23-30); VBG Oxygen Saturation 92.6 % (50-70); VBG PCO2 27.9 mmol/L (35-51); VBG PH 7.51 mmol/L (7.31-7.41); VBG PO2 59.3 mmol/L (28-40); VBG Total CO2 22.7 mmol/L (23-27)
[2024-08-10 13:53] LABS: Lactate Venous 2.9 mmol/L (0.4-2.0)
[2024-08-10 14:04] LABS: Creatinine Clearance Estimated 74 mL/min (50-200)
[2024-08-10 14:22] LABS: Magnesium 1.4 mg/dl (1.6-2.3)
[2024-08-10 14:45] LABS: Phosphorous 1.9 mg/dl (2.5-4.5)
[2024-08-10 14:47] LABS: NT Pro Brain Natriuretic Pep. 714 pg/mL (0-125)
--- NOTE | 2024-08-10 14:47 | PC.NURSE ---
CRITICAL PHOS 1.9. PT NAME AND R/V. SHAJI DUGAN PA-C NOTIFIED
[2024-08-10] MEDS: POTASSIUM CHLORIDE 20MEQ TAB 60 MEQ PO (14:48)
[2024-08-10] MEDS: MAGNESIUM OXIDE 400MG TABLET 800 MG PO (14:48)
[2024-08-10] MEDS: K-PHOS NEUTRAL 250MG TABLET 250 MG PO (14:55)
[2024-08-10 15:05] VITALS: BP 120/70; PULSE 70; RESP 18; TEMP 36.8; O2SAT 98
[2024-08-10 17:53] LABS: Reflex Lactic Add Lactic Reflex
== END 2024-08-10 15:07 | disposition home or self-care (01) ==
PROVIDERS: Physician Assistant; Emergency Provider Emergency Medicine; PCP Family Medicine
DX: E83.39 Other disorders of phosphorus metabolism (principal); R20.2 Paresthesia of skin; R74.02 Elevation of levels of lactic acid dehydrogenase [LDH]; E83.42 Hypomagnesemia; E87.6 Hypokalemia; R51.9 Headache, unspecified; I10 Essential (primary) hypertension; E78.5 Hyperlipidemia, unspecified
CPT/HCPCS: 80053; 82803; 83735; 83880; 84100; 85025; 93005; 99291

== ENCOUNTER 2024-08-11 09:14 | Outpatient (CLI) | payer MEDICARE, SELFPAY ==
--- NOTE | 2024-08-11 09:30 | CA_ITS ---
FINAL REPORT CLINICAL HISTORY: HTN COMPARISON: None FINDINGS: DOPPLER RENAL VESSELS HISTORY: Hypertension . FINDINGS: The exam is markedly limited by body habitus, and large amount of bowel gas, and an inability to evaluate the renal arteries adequately, particularly on the left side. Intrarenal resistive indices on the right are 0.65-0.74, normal . Intrarenal resistive indices on the left are 0.74-0.79, normal . Right main renal artery systolic velocity: 103 cm/sec. Aortic-right renal artery flow velocity ratio: 1.0 COMMENT: No evidence of hemodynamically significant renal artery stenosis, although exam limited. Left main renal artery systolic velocity: The left renal arteries were not visualized. COMMENT: The renal artery velocities and the aortic-left renal artery flow velocity ratio could not be determined on this exam. IMPRESSION: Extremely limited exam as described above. The left renal arteries were not adequately visualized. The resistive indices and aortic-right radial artery flow velocity ratio is normal. CTA or gadolinium-enhanced MR may be considered as a more sensitive exam. Alternatively noncontrast MRI may be considered for assessing main renal arteries for stenosis as a more sensitive exam if the patient has renal insufficiency. Reviewed, Interpreted and Dictated by Haydee Gilmore MD Transcribed by Monie Monet Authenticated and [facility]
--- NOTE | 2024-08-11 10:30 | US_ITS ---
FINAL REPORT CLINICAL HISTORY: I10 - Essential (primary) hypertension FINDINGS: RENAL ULTRASOUND Ultrasound images of the kidneys were obtained. Limited images of the liver parenchyma demonstrates normal echogenicity. Borderline splenomegaly is noted. The right kidney measures 11.3 cm in length. It is normal echogenicity. There is no hydronephrosis. The left kidney measures 12.0 cm in length. It is normal echogenicity. There is no hydronephrosis. IMPRESSION: Normal renal ultrasound. Reviewed, Interpreted and Dictated by Haydee Gilmore MD Transcribed by Diamond Lamas Authenticated and [facility]
== END 2024-08-11 23:59 | disposition home or self-care (01) ==
LOC: RT 09:15
PROVIDERS: PCP Family Medicine; Visit Provider Physician Assistant
DX: I10 Essential (primary) hypertension (principal)
CPT/HCPCS: 76770; 93976

== ENCOUNTER 2024-08-26 09:24 | Outpatient (CLI) | payer MEDICARE, SELFPAY ==
--- OUTSIDE RECORDS SUMMARY | 2024-08-26 09:28 | XMS_ITS | Data Portability ---
Author Organization [facility] CONTRERAS Monge [place] [facility] Address [address] [address] [facility] [address] [place] [address] Care Team Providers Care Car Filler Name Role Phone WELLERMECCA Referring Provider [phone] Assessment Encounter Date Assessment Date Assessment LastModified by Organization Details LastModified Time 01/28/2024 01/28/2024 f/u as needed [email or web address] Not available 01/28/2024 11:28:30 Plan of Treatment Reminders Order Date Submit Date Provider Last Modified By Organization Details Last Modified Time Details Appointments None recorded. Lab surgical pathology study 2023 024 [facility], [address] [place] [address], [phone], 18:01:01 Referral None recorded. Procedures None recorded. [...] 18:00 Page 1 of 1 Not Available [facility], [place], [address], 02/03/2024 18:01:01 Result Notes None recorded. Procedures Surgical History Date Name Laterality Status Provider Name and Address Organization Details Recorded Time 4 Biopsy Skin Lesion; Tangential completed Adore Crockett [facility] 01/28/2024 11:27:19 Imaging Results None recorded. [...] SNOMED-CT Code Diagnosis ICD10 Code Diagnosis Note [id number] ARABELLA JOHNSON MD [address] [place] [address] 01/28/2024 10:41:34 01/28/2024 13:21:45 Neoplasm of uncertain behavior of skin 04965676 D48.5 Lesion of uncertain significan ce: rule [...] or pain. Raised luis f orrheic keratosis [id number] L82.1 Benign Reassuranc eRecommend annual TBSESPF 30 [...] (MEDICARE REPLACEMENT/A DVANTAGE - PPO) Varghese Castro [id number] Varghese Castro Notes Date Note Type Note Provider Name and Address Organization Details Recorded Time 01/28/2024 text/html New Patient - referred Damian weller MD Presents for skin lesion on right mosque and a place on back Denies any other new or changing lesions. Feels well today. Denies family history of malignant melanoma. ARABELLA JOHNSON MD [address] [place] [address], [phone], [facility] 01/29/2024 09:01:13
[2024-08-26 10:38] LABS: Anion Gap 9.7 mEq/L (5-15); Blood Urea Nitrogen 26 mg/dl (9-20); Calcium 8.9 mg/dl (8.4-10.2); Carbon Dioxide 28 mmol/L (22.0-30.0); Chloride 101 mmol/L (98-107); Estimated Glomerular Filt Rate 46 ml/min (>60); GFR (African American) 56 ML/MIN (>60); Glucose 106 mg/dl (74-100); Magnesium 1.5 mg/dl (1.6-2.3); Potassium 3.7 mmoL/L (3.5-5.1); Sodium 135 mmol/L (136-145)
== END 2024-08-26 23:59 | disposition home or self-care (01) ==
LOC: LAB 09:25
PROVIDERS: PCP Family Medicine; Visit Provider Physician Assistant
DX: R42 Dizziness and giddiness (principal); I10 Essential (primary) hypertension; R53.83 Other fatigue
CPT/HCPCS: 36415; 80048; 83735

== ENCOUNTER 2025-01-07 20:53 | Emergency (ER) | payer MEDICARE, SELFPAY ==
[2025-01-07 21:07] VITALS: BP 170/94; PULSE 70; O2SAT 98
[2025-01-07 21:16] VITALS: BP 170/94; PULSE 70; RESP 16; TEMP 37; O2SAT 95; BMI 35.2
--- OUTSIDE RECORDS SUMMARY | 2025-01-07 21:23 | XMS_ITS | Clinical Summary ---
Author Organization Healthcare Address [address] [place] [address] Care Team Providers Care Windows Server Specialist Name Role Phone Jan Zhang MD Primary Care Provider [phone] Family History Medical History Relation Name Comments Diabetes Father Uterine cancer Mother Relation Name Status Comments Father Mother Social History Tobacco Use Types Packs/Day Years Used Date Smoking Tobacco: Never Alcohol Use Standard Drinks/Week Comments No 0 (1 standard drink = 0.6 oz pur e alcohol) Sex and Gender Information Value Date Recorded Sex Assigned at Not on file Legal Sex Male 8:01 PM EDT Gender Identity Not on file Sexual Orientation Not on file Last Filed Vital Signs Vital Sign Reading Time Taken Comments Blood Pressure - - Pulse - - Temperature - - Respiratory Rate - - Oxygen Saturation - - Inhaled Oxygen Concentration - - Weight 114 kg (251 lb 8.7 oz) 04/18/2015 9:46 AM EST Height 185.4 cm (6' 1 ) 04/18/2015 9:46 AM EST Body Mass Index 33.19 04/18/2015 9:46 AM EST Plan of Treatment Health Maintenance Due Date Last Done Comments [facility]-Depression Screening 1950 [facility]-Infant/Child/Adol SDOH Screenings 1950 [facility]- SDOH Screenings 12/13/1969 [facility]-Adult SDOH Screenings 12/13/1969 [facility]-DTaP,Tdap,and Td Vaccine s (1 - Tdap) 12/13/1970 CT Colonography 12/13/1996 Colonoscopy 12/13/1996 FIT-DNA 12/13/1996 FIT 12/13/1996 FOBT 12/13/1996 Sigmoidoscopy 12/13/1996 [facility]-Colorectal Cancer Screening 12/13/1996 [facility]-Pneumococcal Vaccine: 50 + Years (1 of 1 - PCV) 12/13/2001 [facility]-Zoster Vaccines (1 of 2) 12/13/2001 [id number] Vaccine (1 - 20 24-25 season) 2024 [facility]-Influenza Vaccine (#1) 2024 [facility]-RSV Vaccine: 60+ Years o r (1 - 1-dose 75+ series) 12/13/2026 HPV Vaccines Aged Out No longer eligi ble based on patient's age to complete this topic [facility]-HIB Vaccines Aged Out No longer e ligible based on patient's age to complete this topic [facility]-Hepatitis A Vaccines Aged Out No longer eligible based on patient's age to complete this topic [facility]-IPV Vaccines Aged Out No longer e ligible based on patient's age to complete this topic [facility]-Rotavirus Vaccines Aged Out No lo nger eligible based on patient's age to complete this topic Care Teams Windows Server Specialist Relationship Specialty Start Date End Date Jan Zhang MD [address] [place], [place] [address]M[place] [address] PCP - General 08/03/20
--- OUTSIDE RECORDS SUMMARY | 2025-01-07 21:23 | XMS_ITS | Data Portability ---
Author Organization [facility] CONTRER[facility] Monge [place] [facility] Address [address] [facility] [address] [place] [address] Care Team Providers Care News Clerk Name Role Phone MECCA WELLER Referring Provider Assessment Encounter Date Assessment Date Assessment LastModified by Organization Details LastModified Time 01/28/2024 01/28/2024 f/u as needed Not available 01/28/2024 11:28:30 Plan of Treatment Reminders Order Date Submit Date Provider Last Modified By Organization Details Last Modified Time Details Appointments None recorded. Lab surgical pathology study 2023 024 [facility], [address] [place] [address], [phone], 18:01:01 Referral None recorded. Procedures None recorded. [...] and PRAME . DIMITRY DELVALLE M.D. Aminah perez Out Date: 02/02 18:00 Page 1 of 1 Not Available [facility] [address] [place] [address], [place], [phone], 02/03/2024 18:01:01 Result Notes None recorded. Procedures Surgical History Date Name Laterality Status Provider Name and Address Organization Details Recorded Time 4 Biopsy Skin Lesion; Tangential completed Adore Crockett [facility] 01/28/2024 11:27:19 Imaging Results None recorded. [...] Diagnosis SNOMED-CT Code Diagnosis ICD10 Code Diagnosis IMO Codes Diagnosis Note [id number] ARABELLA JOHNSON MD [address] [place] [address] 01/28/2024 10:41:34 01/28/2024 13:21:45 Neoplasm of uncertain behavior of skin [id number] D48.5 Lesion of uncertain significan ce: rule [...] or pain. Raised luis f orrheic keratosis [id number] L82.1 Benign Reassuranc eRecommend annual TBSESPF 30 [...] (MEDICARE REPLACEMENT/A DVANTAGE - PPO) Varghese Castro [id number] Varghese Castro Notes Date Note Type Note Provider Name and Address Organization Details Recorded Time 01/28/2024 text/html New Patient - referred Daiman weller MD Presents for skin lesion on right confucianism and a place on back Denies any other new or changing lesions. Feels well today. Denies family history of malignant melanoma. ARABELLA JOHNSON MD [address] [place] [address], [phone], [facility] 01/29/2024 09:01:13
[2025-01-07 21:30] VITALS: BP 172/99; PULSE 70; O2SAT 98
--- NOTE | 2025-01-07 21:32 | XR_ITS ---
PROCEDURE INFORMATION: Exam: XR Right Tibia and Fibula Exam date and time: 01/07/2025 9:42 PM Age: 74 years old Clinical indication: Pain; Lower leg; Right; Additional info: Soft tissue pain, swelling TECHNIQUE: Imaging protocol: Radiologic exam of the right tibia and fibula. Views: 2 views. COMPARISON: CR XR TIBIA FIBULA RT 2V 04/06/2024 11:35 AM FINDINGS: Bones/joints: No fracture or bone destruction. Pes planus. Patellofemoral joint space narrowing consistent with arthritis. Osteophytic spurring from the tibial spines. Mild medial joint space narrowing. Mild chondrocalcinosis lateral knee joint space. Soft tissues: Normal. IMPRESSION: No acute findings.
--- NOTE | 2025-01-07 21:40 | HMH.EDGENADL ---
Discharge Plan Disposition Patient Disposition: Home, Self-Care Prescriptions Prescriptions: New cephalexin 500 mg capsule 500 mg PO Q6H 7 Days Qty: 28 0RF No Action aspirin [Adult Low Dose Aspirin] 81 mg tablet,delayed release (DR/EC) 81 mg PO Q OTHER DAY (DME) comp.stocking,thigh,long,x-lrg Misc See Rx Instructions .Route Qty: 12 0RF Rx Instructions: As directed Eliquis 5 mg tablet 0RF magnesium oxide 400 mg magnesium capsule 400 mg PO DAILY Qty: 90 3RF potassium chloride [Klor-Con M10] 10 mEq tablet,ER particles/crystals 10 meq PO DAILY Qty: 30 2RF atorvastatin 20 mg tablet 20 mg PO QDAY carvedilol 25 mg tablet 25 mg PO BID 30 Days Qty: 60 5RF Rx Instructions: must administer with a meal/food losartan 50 mg tablet 50 mg PO DAILY Qty: 90 3RF fexofenadine-pseudoephedrine [Samia-D 12 Hour] 60-120 mg tablet extended release 12 hr 1 tab PO BID Qty: 60 0RF Eliquis 5 mg tablet See Rx Instructions .ROUTE .COMPLEX Qty: 180 2RF Dose Instruction: TAKE 1 TABLET BY MOUTH TWICE DAILY Rx Instructions: TAKE 1 TABLET BY MOUTH TWICE DAILY hydrochlorothiazide 50 mg tablet 50 mg PO DAILY Qty: 30 5RF Referrals Follow up/Referrals: Susan Upton MD [Primary Care Provider, Medical] - See instructions Activity Restrictions/Add. Instructions Additional Instructions/Restrictions: You have an infection of the skin of your right leg. You are being prescribed antibiotics. Take these as prescribed. I do encourage you to follow-up closely with your primary care physician in the middle of next week to ensure that the infection is getting better. If you develop any new or worsening symptoms, such as worsening fever, redness and swelling spreading up the leg, or if you become concerned for your help for any reason, return to the emergency department for evaluation. Clinical Impressions Clinical Impression: Cellulitis of leg, right Print Language Print Language: German Discharge ED Provider: Rafael Powell Adult HPI General Chief complaint: Extremity Injury, Lower Stated complaint: fever,right lower leg painful and swollen Time Seen by Provider: 01/07/25 21:19 Mode of Arrival: Ambulatory Source of Information: Patient and Spouse Description of Symptoms (Recalled from ER Triage Doc. by RN): pt presents for evaluation of redness, swelling, and pain to right leg that began approx 3 days ago. Pt deneis any new injuries reports The same thing happened to me awhile ago and it was an infection Pt reports associated fevers at home, reports to taking blood thinners as he is supposed to. History of Present Illness HPI narrative: Varghese Rosales is a 74-year-old male with a history of hypertension, hyperlipidemia, previous infection of his right lower extremity who presents to the emergency department for complaints of right houston redness and itchiness for the past 3 days. He reports that he has been admitted previously for infection of his right houston. He states that he has had some redness and itchiness to the area for the past 3 days but it worsened today. He denies any numbness or tingling. He reports that he works outside a lot and hits his legs on multiple things often and believes he may have hit it on a tractor piece when this initially began. He reports subjective fevers at home but has not taken his temperature. Related Data Home Medications ?Medication ?Instructions ?Recorded ?Confirmed atorvastatin 20 mg tablet 20 mg PO QDAY Cholesterol 03/27/17 09/19/24 aspirin 81 mg tablet,delayed 81 mg PO Q OTHER DAY HEART HEALTH 06/08/24 09/19/24 release (Adult Low Dose Aspirin) Previous Rx's ?Medication ?Instructions ?Recorded apixaban 5 mg tablet (Eliquis) See Rx Instructions .Route 02/17/24 .COMPLEX #180 tabs comp.stocking,thigh,long,x-lrg #12 ea 06/08/24 magnesium oxide 400 mg PO DAILY #90 caps 08/18/24 potassium chloride 10 mEq 10 meq PO DAILY #30 tabs 08/18/24 tablet,extended release(part/cryst) (Klor-Con M) carvedilol 25 mg tablet 25 mg PO BID 30 days #60 tabs 08/31/24 fexofenadine 60 mg-pseudoephedrine 1 tab PO BID #60 tabs 08/31/24 ER 120 mg tablet,ext.release,12 hr (Samia-D 12 Hour) losartan 50 mg tablet 50 mg PO DAILY #90 tabs 08/31/24 hydrochlorothiazide 50 mg tablet 50 mg PO DAILY #30 tabs 10/07/24 cephalexin 500 mg capsule 500 mg PO Q6H 7 days #28 caps 01/07/25 Allergies Allergy/AdvReac Type Severity Reaction Status Date / Time amlodipine (From Norvas) AdvReac Intermediate leg Verified 09/19/24 11:27 swelling morphine AdvReac Nausea Verified 09/19/24 11:27 PFSH PFS Disclaimer: The information contained in this section may have been updated after the patient was seen, as this information can be updated by other users. Medical History Supraventricular tachycardia Kidney stone GERD (gastroesophageal reflux disease) Palpitations Atrial fibrillation Cardiac pacemaker in situ HTN (hypertension) HLD (hyperlipidemia) Family History Other Asthma Social History Smoking Status: Never smoker alcohol intake: never substance use type: denies use current occupational status: other Travel in the last 8 weeks?: Inside the [place] household members: spouse housing: house current occupational exposures/hazards: No caffeine: Yes Have you lived/traveled outside US in past 30 days?: No Contact w/someone who lives/traveled outside US past 30 days?: No Exposure to someone with infectious disease in past 14 days?: No Do you have a fever (greater than 100.4 F or 38 C)?: No Have you tested positive for COVID-19?: No Exposed to someone with COVID-19 in past 14 days?: No Do you have a sore throat?: No Do you have a cough?: No Do you have any weakness?: No Do you have any diarrhea?: No Are you experiencing any unusual bleeding?: No Do you have any muscle aches/pain?: No Do you have any abdominal pain?: No Are you experiencing loss of taste or smell?: No Other Medical History Have you received the Flu Vaccine for this season: Yes Have you received the Pneumonia Vaccine: No ROS Obtained: Yes Systems reviewed as appropriate & no additional complaints except as documented Physical Exam General General appearance: alert and in no apparent distress Head Head exam: atraumatic Eye Eye exam: Present normal appearance ENT ENT exam: Present normal external ear exam Neck Neck exam: Present full ROM Chest Chest inspection: Present symmetric chest wall rise Respiratory Respiratory exam: Present normal lung sounds bilaterally; Absent respiratory distress Cardiovascular Cardiovascular exam: Present regular rate and normal rhythm Abdominal Exam Abdominal exam: Present soft; Absent tenderness or guarding exam: Present deferred Extremities Exam Extremities exam: Present normal inspection Expanded Lower Extremity Exam Right: Leg image:  1. redness, erythema, warmth no induration or fluctuance 2. redness, erythema, warmth, no induration or fluctuance Back Exam Back exam: Present normal inspection Comment: Right lower extremity: 2+ DP and PT pulse. Full range of motion at the ankle and knee. No knee tenderness or swelling. Neurological Exam Neurological exam: Present alert and oriented X3 Psychiatric Psychiatric exam: Present normal affect Skin Skin exam: Present warm and dry Medical Decision Making Medical Records Screening: Per USPSTF and CDC recommendations, given the prevalence of disease in our region, it is our hospital?s policy to screen for HIV and viral Hepatitis for all patients aged 18 and over and those with ongoing risk factors. Hu Inquiry Pt receiving controlled substance: No Vital Signs: 01/07/25 21:07 01/07/25 21:16 01/07/25 21:30 Temperature 98.6 F Temperature Source Oral Pulse Rate 70 70 Pulse Rate [Radial] 70 Respiratory Rate 16 Blood Pressure 170/94 H 172/99 H Blood Pressure [Right Arm] 170/94 H Blood Pressure Mean [Right Arm] 119 Blood Pressure Position Blood Pressure Position [Right Arm] Sitting 02 Sat by Pulse Oximetry 98 95 98 Oxygen Delivery Method Room Air 01/07/25 22:56 01/07/25 23:00 01/08/25 00:16 Temperature 98.1 F Temperature Source Pulse Rate 70 71 70 Pulse Rate [Radial] Respiratory Rate 16 Blood Pressure 151/88 H 167/93 H 162/90 H Blood Pressure [Right Arm] Blood Pressure Mean [Right Arm] Blood Pressure Position Sitting Blood Pressure Position [Right Arm] 02 Sat by Pulse Oximetry 97 98 Oxygen Delivery Method Room Air Lab Data Lab Results 01/07/25 21:12: WBC 8.7, RBC 5.08, Hgb 16.6, Hct 46.3, MCV 91.1, MCH 32.7 H, MCHC 35.9 H, RDW 13.5, Plt Count 195, MPV 11.2 H, Neut % (Auto) 68.9, Lymph % (Auto) 16.5, Weld % (Auto) 11.9 H, Eos % (Auto) 1.8, Baso % (Auto) 0.6, Neut # (Auto) 6.0, Lymph # (Auto) 1.4, Weld # (Auto) 1.0, Eos # (Auto) 0.2, Baso # (Auto) 0.1, Sodium 132 L, Potassium 3.2 L, Chloride 94 L, Carbon Dioxide 29, Anion Gap 12.2, BUN 20, Creatinine 1.30 H, Estimated Creat Clear 84, Estimated GFR 54 L, Est GFR ( Amer) 65, Glucose 161 H, Lactate 1.4, Calcium 8.3 L, Total Bilirubin 1.7 H, AST 41, ALT 37, Alkaline Phosphatase 83, Total Creatine Kinase 81, C-Reactive Protein 89.9 H, Total Protein 7.0, Albumin 3.8, Globulin 3.2, Albumin/Globulin Ratio 1.2, Procalcitonin 0.076 01/07/25 21:12 01/07/25 21:12 Orders (Tests/Meds): ED MEDICATIONS Discontinued Medications Generic Name Dose Route Start Last Admin Trade Name Freq PRN Reason Stop Dose Admin Cephalexin HCl 500 mg 01/07/25 23:46 01/08/25 00:09 Cephalexin 500mg Capsule PO 01/07/25 23:47 500 mg ONCE ONE Administration Iopamidol 100 ml 01/07/25 22:33 01/07/25 22:34 Iopamidol-370 (76%);100ml Bottle IV 01/07/25 22:34 100 ml ONCE ONE Administration Sodium Chloride 10 ml 01/07/25 22:33 01/07/25 22:34 Sodium Chloride 0.9% 10ml Syr (Rad Only) IV 02/06/25 22:32 10 ml NEEDED PRN Administration Maintain IV Site Sodium Chloride 50 ml 01/07/25 22:33 01/07/25 22:34 0.9 % Sodium Chloride 50 Ml Vial IV 01/07/25 22:34 50 ml ONCE ONE Administration ORDERS Category Date Time Status CT Tib/Fib RT w con Stat Cat Scan 01/07/25 21:48 Completed Fibula/tibia XR right 2 views [XR tibia fibula RT 2V] Exams 01/07/25 21:32 Completed Stat POCUS Point of Care (ER Only) Stat Exams 01/07/25 21:27 Completed CBC w/Auto Diff [Complete Blood Count Auto Diff] Stat Lab 01/07/25 21:12 Completed CK [Creatine Kinase] Stat Lab 01/07/25 21:12 Completed CMP [Comprehensive Metabolic Panel] Stat Lab 01/07/25 21:12 Completed CRP [C-Reactive Protein] Stat Lab 01/07/25 21:12 Completed Lactic Acid Stat Lab 01/07/25 21:12 Completed Procalcitonin Stat Lab 01/07/25 21:12 Completed Blood Culture Stat Micro 01/07/25 22:06 Received Medical Decision Narrative: Varghese Rosales is a 74-year-old male with a history of hypertension, hyperlipidemia, previous infection of his right lower extremity who presents to the emergency department for complaints of right houston redness and itchiness for the past 3 days. He reports that he has been admitted previously for infection of his right houston. He states that he has had some redness and itchiness to the area for the past 3 days but it worsened today. He denies any numbness or tingling. He reports that he works outside a lot and hits his legs on multiple things often and believes he may have hit it on a tractor piece when this initially began. He reports subjective fevers at home but has not taken his temperature. On arrival, patient is afebrile, hypertensive but hemodynamically stable. Heart rate within normal limits. Oxygen saturation 90% on room air. Physical exam, stated above, revealed overall nontoxic-appearing male in no distress. He is alert and answering questions appropriately he has redness, warmth and erythema to the right houston on the anterior and posterior aspect of it. It does appear mildly swollen. He has 2+ DP and PT pulses. Full range of motion at the ankle with dorsiflexion and plantarflexion. No redness or erythema or swelling over the knee. No fluctuance or induration is noted to this area. Differential diagnosis includes, but is not limited to: Cellulitis, necrotizing soft tissue infection, osteomyelitis, abscess, venous insufficiency, among others. The most morbid conditions were considered and workup was based on these. Workup in the emergency department included: [id number] ultrasound, right tib-fib x-ray, CBC with differential, CMP, lactic acid, CRP, procalcitonin, blood culture x 2 Port care ultrasound performed by me personally showed cobblestoning and possibly few areas of hypoechoic echogenicity, however indeterminant. X-ray imaging showed no bony erosion no obvious gas, however concern for possible dirty shadowing on ultrasound, will obtain CT imaging with IV contrast of the right lower extremity to rule out necrotizing soft tissue infection. Patient's workup showed no leukocytosis, mild hyponatremia 132 and mild hypokalemia at 3.2, however this appears to be close to patient's baseline (chronically elevated ALT creatinine at 1.3, which is at or below patient's baseline. Mild elevated glucose at 161. Bilirubin is chronically elevated at 1.7. Liver enzymes otherwise within normal limits. CRP is elevated at 89.9. Procalcitonin is within normal limits. The patient's low reticulocyte score is 6. CT imaging was interpreted by me personally. There is no evidence of gas in the soft tissues and I do not feel there is evidence of necrotizing soft tissue infection. There is edema and skin thickening in the distal lower leg consistent with cellulitis. See radiology report for details. Given patient does not appear septic with low concern for necrotizing soft tissue infection, I do feel the patient is appropriate discharge on oral antibiotics. Will prescribe Keflex at this time. Recommended close follow-up with his primary care physician in the middle of next week to ensure that infection is clearing. Return precautions were given. All questions were answered. He demonstrated understanding and was in agreement with this plan. He was given a dose of Keflex here in the emergency department was discharged with a 7-day course. Procedures Limited Ultrasound Interpretation:: Limited MSK/soft tissue ultrasound Indication: Soft tissue swelling and redness and warmth Identified structures: Location: Right distal lower extremity Findings: Cellulitis without evidence of abscess or fluid collection. Potentially few scattered areas of hypoechogenicity Impression: Cellulitis of soft tissue Images were saved to permanent archive The study was technically adequate Soft Tissue CPT Codes: CPT Lower Extremity: 35342-09 CPT Other Soft Tissue: 42012-19 This study was performed by me, and I personally interpreted all images/videos. Based on my clinical judgement, these images were adequate and did necessitate further imaging. Critical Care Critical Care Time Critical Care Time: No
--- NOTE | 2025-01-07 21:48 | CT_ITS ---
PROCEDURE INFORMATION: Exam: CT Right Lower Extremity With Contrast, Leg Exam date and time: 01/07/2025 10:28 PM Age: 74 years old Clinical indication: Cellulitis and edema and swelling or effusion of joint; Location not specified; Lower leg; Joint not specified; Right; Additional info: Celluilitis, possible necrotizing infection TECHNIQUE: Imaging protocol: CT of the right lower extremity with intravenous contrast was performed. Exam focused on the lower leg. Radiation optimization: All CT scans at this facility use at least one of these dose optimization techniques: automated exposure control; mA and/or kV adjustment per patient size (includes targeted exams where dose is matched to clinical indication); or iterative reconstruction. Contrast material: ISOVUE; Contrast volume: 100 ml; Contrast route: IV; COMPARISON: CR XR TIBIA FIBULA RT 2V 01/07/2025 9:42 PM FINDINGS: Bones/joints: No fracture or bone destruction. Patellofemoral joint space narrowing consistent with arthritis. Osteophytic spurring from the tibial spines. Mild medial joint space narrowing. Chondrocalcinosis lateral the joint. Soft tissues: Moderate lower leg edema and mild skin thickening. Muscle planes appear intact. Vasculature: Vascular calcifications. IMPRESSION: 1. No fracture or bone destruction. 2. Patellofemoral joint space narrowing consistent with arthritis. 3. Osteophytic spurring from the tibial spines. 4. Mild medial joint space narrowing. 5. Chondrocalcinosis lateral the joint. 6. Moderate lower leg edema and mild skin thickening. Findings may reflect cellulitis. 7. No clear-cut evidence for necrotizing fasciitis. 8. Mild edema in the deep fascial planes. 9. Muscle planes appear intact. 10. Vascular calcifications.
[2025-01-07 21:57] LABS: Albumin Level 3.8 g/dl (3.5-5.0); Chloride 94 mmol/L (98-107); Potassium 3.2 mmoL/L (3.5-5.1); Sodium 132 mmol/L (136-145)
[2025-01-07 22:00] LABS: Alanine Aminotransferase 37 U/L (12-78); Albumin/Globulin Ratio 1.2 (1.1-1.8); Alkaline Phosphatase 83 U/L (38-126); Anion Gap 12.2 mEq/L (5-15); Aspartate Amino Transferase 41 U/L (17-59); Bilirubin,Total 1.7 mg/dl (0.2-1.3); Blood Urea Nitrogen 20 mg/dl (9-20); Carbon Dioxide 29 mmol/L (22.0-30.0); Creatine Kinase 81 U/L (55-170); Creatinine Clearance Estimated 84 mL/min (50-200); Creatinine,Serum 1.30 mg/dl (0.66-1.25); Estimated Glomerular Filt Rate 54 ml/min (>60); GFR (African American) 65 ML/MIN (>60); Globulin 3.2 g/dL (1.3-3.2); Hematocrit 46.3 % (42.0-52.0); Hemoglobin 16.6 g/dL (14.1-18.0); Immature Granulocytes % 0.3 %; Mean Corpuscular HGB Conc 35.9 g/dL (31.8-35.4); Mean Corpuscular Hemoglobin 32.7 pg (27.0-31.2); Mean Corpuscular Volume 91.1 fl (80-94); Nucleated Red Blood Cells % 0 %; Platelet Count 195 K/mm3 (142-424); Red Blood Count 5.08 M/mm3 (4.60-6.20); Red Cell Distribution Width-SD 45.1 fL; Total Protein,Serum 7.0 g/dl (6.3-8.2); White Blood Count 8.7 K/mm3 (4.8-10.8)
[2025-01-07 22:01] LABS: Calcium 8.3 mg/dl (8.4-10.2); Glucose 161 mg/dl (74-100)
[2025-01-07 22:12] LABS: C-Reactive Protein 89.9 mg/L (0-4)
[2025-01-07 22:17] LABS: Procalcitonin 0.076 ng/mL (0.0-2.0)
[2025-01-07] MEDS: IOPAMIDOL-370 (76%);100ML BOTTLE 100 ML IV (22:34)
[2025-01-07] MEDS: SODIUM CHLORIDE 0.9% 10ML SYR (RAD ONLY) 10 ML IV (22:34)
[2025-01-07] MEDS: 0.9 % SODIUM CHLORIDE 50 ML VIAL IV (22:34)
[2025-01-07 22:56] VITALS: BP 151/88; PULSE 70; O2SAT 97
[2025-01-07 23:00] VITALS: BP 167/93; PULSE 71; O2SAT 98
[2025-01-08 00:16] VITALS: BP 162/90; PULSE 70; RESP 16; TEMP 36.7; O2SAT 97
== END 2025-01-08 00:17 | disposition home or self-care (01) ==
PROVIDERS: Emergency Provider Student in an Organized Health Care Education/Training Program; PCP Family Medicine
DX: L03.115 Cellulitis of right lower limb (principal); R60.0 Localized edema; M79.661 Pain in right lower leg; R50.9 Fever, unspecified; E87.1 Hypo-osmolality and hyponatremia; E87.6 Hypokalemia
CPT/HCPCS: 73590; 73701; 80053; 82550; 83605; 84145; 85025; 86140; 87040; 99285; Q9967

== ENCOUNTER 2025-02-01 09:25 | Outpatient (CLI) | payer MEDICARE, SELFPAY ==
--- OUTSIDE RECORDS SUMMARY | 2025-02-01 09:28 | XMS_ITS | Clinical Summary ---
Author Organization Healthcare Address [address] [place] [address] Care Team Providers Care Denture Technician Name Role Phone Jan Zhang MD Primary Care Provider [phone] Family History Medical History Relation Name Comments [...] Date Last Done Comments [facility]-Depression Screening 1950 [facility]-/Child/Adol SDOH Screenings 1950 [facility]- SDOH Screenings 12/13/1969 [facility]-Adult SDOH Screenings 12/13/1969 [facility]-DTaP,Tdap,and Td Vaccine s (1 - Tdap) 12/13/1970 CT Colonography 12/13/1996 Colonoscopy 12/13/1996 FIT-DNA 12/13/1996 FIT 12/13/1996 FOBT 12/13/1996 Sigmoidoscopy 12/13/1996 [facility]-Colorectal Cancer Screening 12/13/1996 [facility]-Pneumococcal Vaccine: 50 + Years (1 of 1 - PCV) 12/13/2001 [facility]-Zoster Vaccines (1 of 2) 12/13/2001 [id number] Vaccine (1 - 20 24-25 season) 2024 [...] age to complete this topic Care Teams Denture Technician Relationship Specialty Start Date End Date Jan Zhang MD [address] [place], [place] [address] [address] PCP - General 08/03/20
[2025-02-01 10:27] LABS: Carbon Dioxide 30 mmol/L (22.0-30.0); Chloride 97 mmol/L (98-107); Sodium 135 mmol/L (136-145)
[2025-02-01 10:55] LABS: Anion Gap 11.5 mEq/L (5-15); Blood Urea Nitrogen 18 mg/dl (9-20); Calcium 9.3 mg/dl (8.4-10.2); Creatinine,Serum 1.40 mg/dl (0.66-1.25); Estimated Glomerular Filt Rate 50 ml/min (>60); GFR (African American) 60 ML/MIN (>60); Glucose 130 mg/dl (74-100); Potassium 3.5 mmoL/L (3.5-5.1)
== END 2025-02-01 23:59 | disposition home or self-care (01) ==
LOC: LAB 09:25
PROVIDERS: PCP Family Medicine; Visit Provider Nurse Practitioner
DX: E78.5 Hyperlipidemia, unspecified (principal); I10 Essential (primary) hypertension
CPT/HCPCS: 36415; 80048

== ENCOUNTER 2025-02-20 09:33 | Outpatient (CLI) | payer MEDICARE, SELFPAY ==
--- OUTSIDE RECORDS SUMMARY | 2025-02-20 09:36 | XMS_ITS | Clinical Summary ---
Author Organization Healthcare Address [address] [place] [address] Care Team Providers Care Child Development Director Name Role Phone Jan Zhang MD Primary Care Provider [phone] Family History Medical History Relation Name Comments [...] 12/13/2001 [facility]-Zoster Vaccines (1 of 2) 12/13/2001 [id number] Vaccine ( - 20 25-26 season) 2024 [facility]-Influenza Vaccine (#1) 2024 [facility]-RSV [...] age to complete this topic Care Teams Child Development Director Relationship Specialty Start Date End Date Jan Zhang MD [address] [place], [place] [address] [place] [address] PCP - General 08/03/20
--- OUTSIDE RECORDS SUMMARY | 2025-02-20 09:37 | XMS_ITS | Data Portability ---
Author Organization [facility] CONTRERAS Monge [place] CLOSED Address [address] [facility] [address] [place] [address] Care Team Providers Care Global Sales Director Name Role Phone MECCA WELLER Referring Provider Assessment Encounter Date Assessment Date Assessment LastModified by Organization Details LastModified Time 01/28/2024 01/28/2024 f/u as needed [email or web address] Not available 01/28/2024 11:28:30 Plan of Treatment Reminders Order Date Submit Date Provider Last Modified By Organization Details Last Modified Time Details Appointments None recorded. Lab surgical pathology study 2023 024 [facility], [address] [place] [address], [id number], 18:01:01 Referral None recorded. Procedures None recorded. [...] 18:00 Page 1 of 1 Not Available [facility] [address] [place] [address], [place], [phone], 02/03/2024 18:01:01 Result Notes None recorded. Procedures Surgical History Date Name Laterality Status Provider Name and Address Organization Details Recorded Time 4 Biopsy Skin Lesion; Tangential completed Adore Crockett [facility] 01/28/2024 11:27:19 Imaging Results None recorded. Procedure [...] ICD10 Code Diagnosis IMO Codes Diagnosis Note [id number] ARABELLA JOHNSON MD DERMATOL[address] [place] [address] 01/28/2024 10:41:34 01/28/2024 13:21:45 Neoplasm of uncertain behavior of skin 42004540 D48.5 Lesion of uncertain significan ce: rule [...] or pain. Raised luis f orrheic keratosis [id number] L82.1 Benign Reassuranc eRecommend annual TBSESPF 30 [...] (MEDICARE REPLACEMENT/A DVANTAGE - PPO) Varghese Castro [id number] Varghese Castro Notes Date Note Type Note Provider Name and Address Organization Details Recorded Time 01/28/2024 text/html New Patient - referred Damian weller MD Presents for skin lesion on right buddhist and a place on back Denies any other new or changing lesions. Feels well today. Denies family history of malignant melanoma. ARABELLA JOHNSON MD [address] [place] [address], [phone], [facility] 01/29/2024 09:01:13
[2025-02-20 09:59] LABS: Hematocrit 49.2 % (42.0-52.0); Hemoglobin 18.0 g/dL (14.1-18.0); Immature Granulocytes % 0.1 %; Mean Corpuscular HGB Conc 36.6 g/dL (31.8-35.4); Mean Corpuscular Hemoglobin 32.5 pg (27.0-31.2); Mean Corpuscular Volume 89.0 fl (80-94); Nucleated Red Blood Cells % 0 %; Platelet Count 200 K/mm3 (142-424); Red Blood Count 5.53 M/mm3 (4.60-6.20); Red Cell Distribution Width-SD 44.8 fL; White Blood Count 6.9 K/mm3 (4.8-10.8)
[2025-02-20 11:08] LABS: Albumin Level 3.8 g/dl (3.5-5.0); Chloride 101 mmol/L (98-107); Potassium 3.3 mmoL/L (3.5-5.1); Sodium 141 mmol/L (136-145)
[2025-02-20 11:11] LABS: Alanine Aminotransferase 57 U/L (12-78); Alkaline Phosphatase 70 U/L (38-126); Anion Gap 15.3 mEq/L (5-15); Aspartate Amino Transferase 44 U/L (17-59); Bilirubin,Direct 0.1 mg/dl (0.0-0.4); Bilirubin,Indirect 1.6 mg/dL (0.0-0.9); Bilirubin,Total 1.7 mg/dl (0.2-1.3); Bilirubin,Unconjugated 1.6 mg/dL (0.0-1.1); Blood Urea Nitrogen 19 mg/dl (9-20); Calcium 8.3 mg/dl (8.4-10.2); Carbon Dioxide 28 mmol/L (22.0-30.0); Cholesterol 92 mg/dl (140-200); Creatinine,Serum 1.30 mg/dl (0.66-1.25); Estimated Glomerular Filt Rate 54 ml/min (>60); GFR (African American) 65 ML/MIN (>60); Glucose 133 mg/dl (74-100); Total Protein,Serum 6.9 g/dl (6.3-8.2); Triglycerides 69 mg/dl (30-150)
[2025-02-20 11:12] LABS: HDL Cholesterol 39 mg/dl (40-60); Magnesium 1.4 mg/dl (1.6-2.3)
[2025-02-20 11:28] LABS: Free T4 (Free Thyroxine) 1.25 ng/dl (0.78-2.19)
[2025-02-20 11:42] LABS: Thyroid Stimulating Hormone 3.00 uIU/mL (0.465-4.68)
== END 2025-02-20 23:59 | disposition home or self-care (01) ==
LOC: LAB 09:34
PROVIDERS: PCP Family Medicine; Visit Provider Nurse Practitioner
DX: I10 Essential (primary) hypertension (principal); E78.2 Mixed hyperlipidemia
CPT/HCPCS: 36415; 80048; 80061; 80076; 82088; 82384; 83735; 83835; 84439; 84443; 85025

== ENCOUNTER 2025-02-22 09:36 | Outpatient (CLI) | payer MEDICARE, SELFPAY ==
--- OUTSIDE RECORDS SUMMARY | 2025-02-22 09:39 | XMS_ITS | Clinical Summary ---
Author Organization Healthcare Address [address] [place] [address] Care Team Providers Care Tube Sizer And Cutter Operator Name Role Phone Jan Zhang MD Primary Care Provider [phone] Family History Medical History Relation Name Comments [...] 12/13/2001 [facility]-Zoster Vaccines (1 of 2) 12/13/2001 [id number] Vaccine ( - 20 25-26 season) 2024 [...] age to complete this topic Care Teams Tube Sizer And Cutter Operator Relationship Specialty Start Date End Date Jan Zhang MD [address] [place], [place] [address] [place] [address] PCP - General 08/03/20
== END 2025-02-22 23:59 | disposition home or self-care (01) ==
LOC: LAB 09:36
PROVIDERS: PCP Family Medicine; Visit Provider Nurse Practitioner
DX: E78.2 Mixed hyperlipidemia (principal); I10 Essential (primary) hypertension
CPT/HCPCS: 82384; 83835; 84585

== ENCOUNTER 2025-02-24 09:33 | Outpatient (CLI) | payer MEDICARE, SELFPAY ==
--- NOTE | 2025-02-24 10:00 | CA_ITS ---
APPROVED REPORT EXAM: Comprehensive 2D, Doppler, and color-flow Echocardiogram with contrast Element Setter: Maude Waters CRT Ht: 6 ft 0 in Wt: 270lbs BSA: 2.42 BP: 160/100 mmHg Indications: Atrial Fibrillation, Palpitations, Hyperlipidemia, Hypertension/HDD. pacer, SVT Echo Enhancing Agent Indication: Endocardial border delineation Agent(s) / Amount(s) Used: Definity 2 cc Comments: definity given M-Mode Dimensions RVDd 2.83 cm (0.9-2.6) LA Diam 5.00 cm (1.9-4.0) LVDd 4.54 cm (3.5-5.7) LVDs 3.17 cm (3.5-5.7) IVSd 1.34 cm (0.6-1.1) PWd 0.84 cm (0.6-1.1) EF (Teich) 57.60% FS 30.20% EDV (Teich) 94.40 mL ESV (Teich) 40.00 mL LV Diastology E Decel Time 120 (160-240 msec) E/A Ratio 5.05 MED A' 12.40 cm/s LAT A' 8.90 cm/s Mitral Valve MV A Velocity 19.0 (40-130 cm/s) E/A Ratio 5.05 Pulmonary Valve PV Peak Velocity 102.0 (50-150 cm/s) Tricuspid Valve TR P. Velocity 266.00 cm/s RAP Estimate 10.00 mmHg RVSP 38.30 mmHg Left Ventricle The left ventricle is normal size. Left ventricular systolic function is normal. The left ventricular ejection fraction is within the normal range. There is increased left ventricular wall thickness. There is normal LV segmental wall motion. The left ventricular diastolic function is normal. No left ventricle thrombus noted on this study. LVEF is 55% Right Ventricle The right ventricle is moderately dilated. The right ventricular systolic function is mildly reduced. Atria Left atrium is mildly dilated. Right atrium is mildly dilated. There is no color Doppler evidence of interatrial shunt. Aortic Valve The aortic valve is mildly thickened. There is no hemodynamically significant aortic valvular stenosis. Trace aortic regurgitation is present. Mitral Valve The mitral valve is normal in structure. No evidence of mitral valve stenosis. Mild mitral regurgitation is present. Tricuspid Valve The tricuspid valve leaflets are thin and pliable. Trace tricuspid regurgitation. There is insufficient TR jet to estimate RVSP. Pulmonic Valve The pulmonary valve is grossly normal in structure. Trace pulmonic valve regurgitation is present. Great Vessels The aortic root is normal in size. IVC is normal in size and collapses >50% with inspiration. Pericardium There is no pericardial effusion. Other Information Study Quality: Technically Difficult Conclusion Normal LV systolic function. Moderate RV dilation with mild reduction in RV function. Mild biatrial dilation. Mild TR. Electronically signed by : Mar Grijalav MD 03/04/2025 16:18:38
[2025-02-24] MEDS: DEFINITY US ECHO CONTRAST 2ML INJ 2 MG IV (11:54)
== END 2025-02-24 23:59 | disposition home or self-care (01) ==
LOC: RT 09:33
PROVIDERS: PCP Family Medicine; Visit Provider Nurse Practitioner
DX: I07.1 Rheumatic tricuspid insufficiency (principal); I11.9 Hypertensive heart disease without heart failure; E78.2 Mixed hyperlipidemia; G47.30 Sleep apnea, unspecified; I48.91 Unspecified atrial fibrillation; I47.10 Supraventricular tachycardia, unspecified; R60.0 Localized edema; Z95.0 Presence of cardiac pacemaker
CPT/HCPCS: 93306; Q9957